=== PATIENT | male | born 1955 | race American Indian/Alaskan Native ===

== ENCOUNTER 2017-03-03 00:28 | Inpatient (IN) | payer MEDICAID, OTHER ==
--- NOTE | 2017-03-03 00:44 | Emergency Department Report ---
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 Patient's family member had last seen him 3 hours prior to arrival and she came home and found him on the ground. FS of 107 by ems. He is not answering questions and only following some commands and he has significant weakness in his left upper and lower extremity as well as a left-sided facial droop. - Related Data Home Medications: Home Medications Medication Instructions Recorded Confirmed Last Taken Apixaban [Eliquis] 5 mg PO BID 08/12/16 08/12/16 08/11/16 AtorvaSTATin [Lipitor] 40 mg PO DAILY 08/12/16 08/12/16 08/11/16 Lisinopril/Hydrochlorothiazide 1 tab PO QDAY 08/12/16 08/12/16 08/11/16 [Zestoretic 20-12.5 mg] Sertraline HCl [Zoloft] 50 mg PO DAILY 08/12/16 08/12/16 08/11/16 amLODIPine [Norvasc] 5 mg PO DAILY 08/12/16 08/12/16 08/11/16 cloNIDine [Catapres] 0.2 mg PO BID 08/12/16 08/12/16 08/11/16 Previous Rx's Medication Instructions Recorded Last Taken Type Carvedilol [Coreg] 25 mg PO BID #60 tablet 09/02/15 08/11/16 Rx Warfarin [Coumadin] 7.5 mg PO QDAY #30 tablet 09/02/15 3 Months Ago Rx metFORMIN [Glucophage] 500 mg PO QDAY #30 tab 09/02/15 08/11/16 Rx Allergies/Adverse Reactions: Allergies Allergy/AdvReac Type Severity Reaction Status Date / Time No Known Allergies Allergy Unverified 08/26/15 02:07 ED Review of Systems ROS: Stated complaint: POSS STROKE Other details as noted in HPI Comment: Unobtainable due to pts medical conditions ED Past Medical Hx - Past Medical History Hx Hypertension: Yes Hx CVA: Yes Hx Congestive Heart Failure: No Hx Diabetes: Yes Hx Kidney Stones: Yes Hx HIV: No - Social History Smoking Status: Never Smoker Substance Use Type: None - Medications Home Medications: Home Medications Medication Instructions Recorded Confirmed Last Taken Type Carvedilol [Coreg] 25 mg PO BID #60 tablet 09/02/15 08/12/16 08/11/16 Rx Warfarin [Coumadin] 7.5 mg PO QDAY #30 tablet 09/02/15 08/12/16 3 Months Ago Rx metFORMIN [Glucophage] 500 mg PO QDAY #30 tab 09/02/15 08/12/16 08/11/16 Rx Apixaban [Eliquis] 5 mg PO BID 08/12/16 08/12/16 08/11/16 History AtorvaSTATin [Lipitor] 40 mg PO DAILY 08/12/16 08/12/16 08/11/16 History Lisinopril/Hydrochlorothiazide 1 tab PO QDAY 08/12/16 08/12/16 08/11/16 History [Zestoretic 20-12.5 mg] Sertraline HCl [Zoloft] 50 mg PO DAILY 08/12/16 08/12/16 08/11/16 History amLODIPine [Norvasc] 5 mg PO DAILY 08/12/16 08/12/16 08/11/16 History cloNIDine [Catapres] 0.2 mg PO BID 08/12/16 08/12/16 08/11/16 History ED Neuro Physical Exam - General Limitations: Altered Mental Status General appearance: alert, in no apparent distress Suspected Stroke: Yes - Head Head exam: Present: atraumatic, normocephalic - Eye Eye exam: Present: normal appearance - ENT ENT exam: Present: normal exam - Neck Neck exam: Present: normal inspection - Respiratory Respiratory exam: Present: normal lung sounds bilaterally. Absent: respiratory distress - Cardiovascular Cardiovascular Exam: Present: regular rate, other (irregularly irregular rhythm) - GI/Abdominal GI/Abdominal exam: Present: soft. Absent: distended, tenderness, guarding - Extremities Exam Extremities exam: Present: normal inspection - Neurological Exam Neurological exam: Present: alert, other (patient is unable to answer questions , when asked to state his name he states makes nonsensical noises, he has significant left upper extremity weakness unable to pick his arm or leg off the stretcher, sensation unable to be assessed, has a slight facial droop on the left, aphasia, appears to be neglecting his left side) - NIHSS Assessment Interval: Baseline 1a. Level of Consciousness: alert 1b. LOC Questions: answers no questions correctly 1c. LOC Commands: performs no tasks correctly 2. Best Gaze: normal 3. Visual: complete hemianopia 4. Facial Palsy: partial paralysis 5b. Motor Arm Right: no drift 5a. Motor Arm Left: no gravity effort 6a. Motor Leg Left: no gravity effort 6b. Motor Leg Right: no drift 7. Limb Ataxia: absent 8. Sensory: severe/total sensory loss 9. Best Language: severe aphasia 10. Dysarthria: severe dysarthria 11. Extinction/Inattention: visual/tactile inattention Total Score: 21 Stroke Severity: Severe Stroke - Psychiatric Psychiatric exam: Present: normal affect ED Course Vital Signs 03/03/17 03/03/17 00:34 01:19 Temperature 98.4 F Pulse Rate 69 60 Respiratory 18 18 Rate Blood Pressure 190/80 Blood Pressure 122/64 [Right] O2 Sat by Pulse 97 98 Oximetry - Consultations Consultation #1: 03/03/17 01:02 Spoke to radiologist who states there is a subacute stroke of approximately 8- 10 hours at right MCA Spoke to neurologist who is currently evaluating the patient. Unclear whether to use tPA as patient has anticoagulation in his medicine list in the past. 03/03/17 01:25 Spoke to the neurologist again after he evaluated the patient, does not recommend TPA at this time, agree with assessment. - Lab Data Result diagrams: 03/03/17 00:45 03/03/17 00:45 Lab Results 03/03/17 03/03/17 03/03/17 Range/Units 00:45 00:45 00:45 WBC 8.0 (4.5-11.0) K/mm3 RBC 5.68 H (3.65-5.03) M/mm3 Hgb 12.2 (11.8-15.2) gm/dl Hct 39.7 (35.5-45.6) % MCV 70 L (84-94) fl MCH 22 L (28-32) pg MCHC 31 L (32-34) % RDW 17.3 H (13.2-15.2) % Plt Count 260 (140-440) K/mm3 Lymph % (Auto) 32.1 (13.4-35.0) % [place] % (Auto) 9.5 H (0.0-7.3) % Eos % (Auto) 2.4 (0.0-4.3) % Baso % (Auto) 0.8 (0.0-1.8) % Lymph # 2.6 (1.2-5.4) K/mm3 [place]eth # 0.8 (0.0-0.8) K/mm3 Eos # 0.2 (0.0-0.4) K/mm3 Baso # 0.1 (0.0-0.1) K/mm3 Seg Neutrophils % 55.2 (40.0-70.0) % Seg Neutrophils # 4.4 (1.8-7.7) K/mm3 PT 13.3 (12.2-14.9) Sec. INR 1.02 (0.87-1.13) APTT 32.1 (24.2-36.6) Sec. Sodium 133 L (137-145) mmol/L Chloride 92.5 L (98-107) mmol/L Carbon Dioxide 24 (22-30) mmol/L BUN 21 H (9-20) mg/dL Creatinine 1.1 (0.8-1.5) mg/dL Estimated GFR > 60 ml/min BUN/Creatinine Ratio 19.09 % Glucose 103 H (75-100) mg/dL Calcium 9.5 (8.4-10.2) mg/dL Phosphorus 3.7 (2.5-4.5) mg/dL Magnesium 1.9 (1.7-2.3) mg/dL Total Bilirubin 0.3 (0.1-1.2) mg/dL Direct Bilirubin < 0.2 (0-0.2) mg/dL Indirect Bilirubin 0.1 mg/dL Troponin T < 0.010 (0.00-0.029) ng/mL Total Protein 8.4 H (6.3-8.2) g/dL Albumin 3.9 (3.9-5) g/dL Albumin/Globulin Ratio 0.9 % - Medical Decision Making Upon evaluation on the EMS stretcher patient appeared to have an exam consistent with a stroke a stroke code was called and the patient was taken immediately to CT. CT did not show any intracranial hemorrhage but appeared to show a right sided infarct in the MCA region. IV, labs, monitor, EKG, chest x-ray, UA, Parra EKG shows atrial fibrillation at a rate of 65, no ST changes Chest x-ray unremarkable Labs unremarkable Aspirin 300 mg OH ordered Nothing by mouth Admission for CVA Critical care attestation.: If time is entered above; I have spent that time in minutes in the direct care of this critically ill patient, excluding procedure time. ED Disposition Clinical Impression: CVA (cerebral vascular accident) Qualifiers: CVA mechanism: unspecified Qualified Code(s): I63.9 - Cerebral infarction, unspecified Disposition: OP ADMITTED IP TO THIS HOSP Is pt being admited?: Yes Does the pt Need Aspirin: Yes Condition: Stable
--- NOTE | 2017-03-03 01:08 | XRay Report ---
FINAL REPORT PROCEDURE: XR CHEST 1V AP TECHNIQUE: Chest radiograph anteroposterior view. CPT 45886 HISTORY: cva COMPARISON: No prior studies are available for comparison. FINDINGS: Heart: Normal. Mediastinum/Vessels: Normal. Lungs/Pleural space: The lungs are clear. The left costophrenic angle is not included on the radiograph and not evaluated.. Bony thorax: No acute osseous abnormality. Life support devices: None. IMPRESSION: No acute cardiopulmonary abnormality.
[2017-03-03 01:13] LABS: Basophils % (Auto) 0.8 % (0.0-1.8); Eosinophils % (Auto) 2.4 % (0.0-4.3); Mean Corpuscular HGB Conc 31 % (32-34); Platelet Count 260 K/mm3 (140-440); Red Blood Count 5.68 M/mm3 (3.65-5.03); Red Cell Distribution Width 17.3 % (13.2-15.2)
[2017-03-03 01:25] LABS: INR 1.02 (0.87-1.13)
[2017-03-03 01:26] LABS: Partial Thromboplastin Time 32.1 Sec. (24.2-36.6)
[2017-03-03 01:29] LABS: Hematocrit 39.7 % (35.5-45.6); Hemoglobin 12.2 gm/dl (11.8-15.2); Mean Corpuscular Hemoglobin 22 pg (28-32); Mean Corpuscular Volume 70 fl (84-94)
[2017-03-03 01:40] LABS: Albumin 3.9 g/dL (3.9-5); Albumin/Globulin Ratio 0.9 %; BUN/Creatinine Ratio 19.09; Bilirubin,Direct < 0.2 mg/dL (0-0.2); Bilirubin,Indirect 0.1 mg/dL; Bilirubin,Total 0.3 mg/dL (0.1-1.2); Blood Urea Nitrogen 21 mg/dL (9-20); Calcium 9.5 mg/dL (8.4-10.2); Carbon Dioxide 24 mmol/L (22-30); Chloride 92.5 mmol/L (98-107); Glucose 103 mg/dL (75-100); Magnesium 1.9 mg/dL (1.7-2.3); Phosphorous 3.7 mg/dL (2.5-4.5); Sodium 133 mmol/L (137-145); Total Protein 8.4 g/dL (6.3-8.2)
[2017-03-03] MEDS ORDERED: ASPIRIN PR ONE ×2 (01:50→04:51)
[2017-03-03 02:34] LABS: Alanine Aminotransferase 17 units/L (7-56); Alkaline Phosphatase 77 units/L (35-129); Anion Gap 22 mmol/L; Creatine Kinase 149 units/L (55-170)
[2017-03-03 02:35] LABS: Potassium 5.4 mmol/L (3.6-5.0)
[2017-03-03] MEDS ORDERED: MILK OF MAGNESIA PO PRN (03:00)
[2017-03-03] MEDS ORDERED: ZOFRAN IV PRN (03:00)
[2017-03-03] MEDS ORDERED: DULCOLAX PR PRN (03:00)
[2017-03-03] MEDS ORDERED: APRESOLINE IV PRN (03:00)
[2017-03-03] MEDS ORDERED: SODIUM CHLORIDE FLUSH SYRINGE 10 ML IV PRN (03:00)
--- NOTE | 2017-03-03 03:12 | History and Physical Report ---
History of Present Illness Date of examination: 03/03/17 History of present illness: 61-year-old man with a history of hypertension, diabetes, A. fib, previous CVA with left sided weakness comes emergency room with complaints of worsening left- sided weakness and difficulty expressing himself. Girlfriend at bedside state that patient was going to the bathroom, fell, he was found on the floor it's on clear what time he was going to the bathroom. Patient was evaluated by telemetry neurologists, TPA was decided not to be given as it was unclear the patient was taken xarelto. Girlfriend state that the patient is actually taking Coumadin, not xarelto Patient denies chest pain, palpitation, shortness of breath, cough, abdominal pain, hematochezia, dysuria, frequency, fever chills, polydipsia polyuria, hot or cold intolerance, easy bruisability, or rash or bleeding from mucosal membrane, rhinorrhea, epistaxis, earache, tinnitus, blurry vision, eye discharge , anxiety, depression. Other review of systems negative PAST SURGICAL HISTORY: None SOCIAL HISTORY: Denies alcohol, tobacco, drugs FAMILY HISTORY: Hypertension Medications and Allergies Allergies Allergy/AdvReac Type Severity Reaction Status Date / Time No Known Allergies Allergy Unverified 08/26/15 02:07 Home Medications Medication Instructions Recorded Confirmed Last Taken Type Carvedilol [Coreg] 25 mg PO BID #60 tablet 09/02/15 03/03/17 1 Day Ago Rx Warfarin [Coumadin] 7.5 mg PO QDAY #30 tablet 09/02/15 03/03/17 1 Day Ago Rx metFORMIN [Glucophage] 500 mg PO QDAY #30 tab 09/02/15 03/04/17 1 Week Ago Rx Lisinopril/Hydrochlorothiazide 1 tab PO QDAY 08/12/16 03/03/17 1 Day Ago History [Zestoretic 20-12.5 mg] Sertraline HCl [Zoloft] 50 mg PO DAILY 08/12/16 03/03/17 1 Day Ago History amLODIPine [Norvasc] 5 mg PO DAILY 08/12/16 03/03/17 1 Day Ago History cloNIDine [Catapres] 0.2 mg PO BID 08/12/16 03/03/17 1 Day Ago History Aspirin [Aspirin TAB] 325 mg PO QDAY #30 tablet 03/09/17 Unknown Rx Bisacodyl [Dulcolax suppos] 10 mg [place] QDAY PRN #30 supp.rect 03/09/17 Unknown Rx Carvedilol [Coreg] 25 mg PO BID #30 tablet 03/09/17 Unknown Rx Hydrochlorothiazide [HCTZ] 12.5 mg PO QDAY capsule 03/09/17 Unknown Rx Pantoprazole [Protonix TAB] 40 mg PO DAILY tablet 03/09/17 Unknown Rx Sertraline [Zoloft] 50 mg PO QDAY tablet 03/09/17 Unknown Rx Simvastatin [Zocor TAB] 40 mg PO QHS #30 tablet 03/09/17 Unknown Rx amLODIPine [Norvasc] 5 mg PO DAILY #30 tablet 03/09/17 Unknown Rx cloNIDine [Catapres] 0.2 mg PO BID #30 tablet 03/09/17 Unknown Rx metFORMIN [Glucophage] 500 mg PO QDDIAB tablet 03/09/17 Unknown Rx Exam - Physical Exam Narrative exam: Gen. appearance: Patient lying in bed, no apparent distress HEENT: Normocephalic, atraumatic, pupils equally round and reactive to light, extraocular movement intact, and no sclericterus,. No JVD or thyromegaly or nodule,neck supple, no carotid bruit ,mucous membranes moist, no exudate or erythema Heart: S1, S2, regular rate and rhythm Lungs: Clear to auscultation bilaterally, breathing comfortable Abdomen: Positive bowel sounds, nontender, nondistended, no organomegaly Extremity: No edema, cyanosis, clubbing Skin: No rash, nodules, warm, dry Neuro: Oriented 3, c, speech is fluent, he has difficulty finding words , left upper and lower extremity 0/5, no sensory deficit, unable to assess facial droop, patient noncompliant - Constitutional Vitals: Temp Pulse Resp BP Pulse Ox 98.4 F 60 18 122/64 99 03/03/17 01:19 03/03/17 01:19 03/03/17 01:19 03/03/17 01:19 03/03/17 01:19 Results - Labs CBC & Chem 7: 03/13/17 05:06 03/03/17 00:45 Labs: Abnormal lab results 03/03/17 03/03/17 Range/Units 00:45 00:45 RBC 5.68 H (3.65-5.03) M/mm3 MCV 70 L (84-94) fl MCH 22 L (28-32) pg MCHC 31 L (32-34) % RDW 17.3 H (13.2-15.2) % Luce % (Auto) 9.5 H (0.0-7.3) % Sodium 133 L (137-145) mmol/L Potassium 5.4 H (3.6-5.0) mmol/L Chloride 92.5 L (98-107) mmol/L BUN 21 H (9-20) mg/dL Glucose 103 H (75-100) mg/dL Total Protein 8.4 H (6.3-8.2) g/dL - Imaging and Cardiology EKG: image reviewed Chest x-ray: image reviewed CT Scan - head: report reviewed Assessment and Plan Acute CVA Hypertension Diabetes type 2 A. fib Admit to medicine Obtain MRI of the head and neck, echo Do neurochecks, swallow screen consult neurology, physical, occupational, speech therapy Start aspirin, statin, DVT prophylaxis Check Fingersticks initiate insulin sliding scale
[2017-03-03] MEDS ORDERED: D50W (25GM) IV PRN (03:15)
--- NOTE | 2017-03-03 08:01 | Cat Scan Report ---
FINAL REPORT PROCEDURE: CT HEAD/BRAIN WO CON TECHNIQUE: Computerized tomography of the head was performed without contrast material. HISTORY: cva COMPARISON: 08/26/2015 FINDINGS: Skull and scalp: Normal. Paranasal sinuses: Normal. Ventricles and subarachnoid spaces: Normal. Cerebrum: There is diffuse area of hypoattenuation identified in the mid and posterior right temporal lobe. Subacute infarction in this region is suspected. No evidence of hemorrhage. Moderate atrophy and periventricular deep white matter changes are noted. Old lacunar infarctions of the right basal ganglia are identified.. Cerebellum and brainstem: No evidence of hemorrhage, acute infarction or mass. Vasculature: Normal. Comments: None. IMPRESSION: Diffuse areas of hypoattenuation identified in the mid and posterior right temporal lobe most consistent with subacute infarction. Further imaging differentiation with MRI may be of benefit. No evidence of acute hemorrhage. Moderate atrophy and periventricular deep white matter changes. There are old lacunar infarctions of the right basal ganglia. The above findings are discussed with the patient's ER physician Dr. Parsons, at the time of dictation 7501 central standard time on 03/02/2017
--- NOTE | 2017-03-03 08:22 | Admit Criteria Form ---
Admission Criteria Documentation: STROKE: ISCHEMIC Clinical Indications for Admission to Inpatient Care (Place 'X' for any and all applicable criteria): Admission is indicated for ANY ONE of the following(1)(2)(3)(4): [X ]I. Acute stroke Extended stay beyond goal length of stay may be needed for(1)(2) [ ]a) Major deficit or clinical deterioration [ ]b) Hospital-acquired infection (eg, urinary tract infection, pneumonia) [ ]c) Embolic cause of stroke [ ]d) Venous thromboembolism(9) [ ]e) Seizures [ ]f) Bleeding (eg, cerebral) [ ]g) Increased intracranial pressure [ ]h) Comorbidities [ ]i) Surgical intervention The original [employer] [facility] content created by [employer] has been revised. The portions of the content which have been revised are identified through the use of italic text or in bold, and [facility] has neither reviewed nor approved the modified material. All other unmodified content is copyright [facility]. Please see references footnoted in the original [facility] edition 2016 Admission Criteria Met: Yes
[2017-03-03] MEDS ORDERED: LOVENOX SUB-Q SCH (10:00)
[2017-03-03] MEDS: ASPIRIN PO SCH (10:18)
[2017-03-03] MEDS: NOVOLOG SUB-Q SCH ×4 (10:18→22:41)
--- NOTE | 2017-03-03 11:18 | Event Note ---
Date: 03/03/17 This is a follow-up from an admission earlier this morning. Will continue plan as outlined in the H&P.
--- NOTE | 2017-03-03 11:40 | Consultation ---
History of Present Illness Consult date: 03/03/17 Requesting physician: JOHNNY ALEJANDRE Reason for Consult: stroke Chief complaint: unclear as pt not verbally responsive History of present illness: 61 YO M Hx HTN/HLD/DM2/prior stroke w/ residual L hemiparesis and Afib on Coumadin but suspected noncompliance as INR on admit 1.02 who was found down on bathroom floor 03/02 overnight. Last well unclear. Sx are constant. There are no clear aggravating, relieving or temporal factors. Severity was enough to cause inability to effectively use the left side. Past History Past Medical History: atrial fib, diabetes, hypertension, hyperlipidemia, stroke Past Surgical History: Other (AMS limits Hx) Social history: single, other (AMS limits hx) Family history: other (AMS limits hx) Medications and Allergies Allergies Allergy/AdvReac Type Severity Reaction Status Date / Time No Known Allergies Allergy Unverified 08/26/15 02:07 Home Medications Medication Instructions Recorded Confirmed Last Taken Type Carvedilol [Coreg] 25 mg PO BID #60 tablet 09/02/15 08/12/16 08/11/16 Rx Warfarin [Coumadin] 7.5 mg PO QDAY #30 tablet 09/02/15 08/12/16 3 Months Ago Rx metFORMIN [Glucophage] 500 mg PO QDAY #30 tab 09/02/15 08/12/16 08/11/16 Rx Apixaban [Eliquis] 5 mg PO BID 08/12/16 08/12/16 08/11/16 History AtorvaSTATin [Lipitor] 40 mg PO DAILY 08/12/16 08/12/16 08/11/16 History Lisinopril/Hydrochlorothiazide 1 tab PO QDAY 08/12/16 08/12/16 08/11/16 History [Zestoretic 20-12.5 mg] Sertraline HCl [Zoloft] 50 mg PO DAILY 08/12/16 08/12/16 08/11/16 History amLODIPine [Norvasc] 5 mg PO DAILY 08/12/16 08/12/16 08/11/16 History cloNIDine [Catapres] 0.2 mg PO BID 08/12/16 08/12/16 08/11/16 History Active Meds: Active Medications Acetaminophen (Tylenol) 650 mg PO Q4H PRN PRN Reason: Pain, Mild (1-3) Aspirin (Aspirin) 325 mg PO QDAY [facility] Last Admin: 03/03/17 10:18 Dose: Not Given Bisacodyl (Dulcolax) 10 mg [place] QDAY PRN PRN Reason: Constipation Dextrose (D50w (25gm)) 50 ml IV PRN PRN PRN Reason: Hypoglycemia Enoxaparin Sodium (Lovenox) 40 mg SUB-Q QDAY@1000 LAILA Hydralazine HCl (Apresoline) 5 mg IV Q6H PRN PRN Reason: Keep SBP between 160-185 mm Hg Insulin Aspart (Novolog) 0 units SUB-Q ACHS LAILA PRN Reason: Protocol Last Admin: 03/03/17 10:18 Dose: Not Given Magnesium Hydroxide (Milk Of Magnesia) 30 ml PO Q4H PRN PRN Reason: Constipation Ondansetron HCl (Zofran) 4 mg IV Q8H PRN PRN Reason: N/V unrelieved by Reglan Simvastatin (Zocor) 20 mg PO QHS [facility] Sodium Chloride (Sodium Chloride Flush Syringe 10 Ml) 10 ml IV PRN PRN PRN Reason: LINE FLUSH Review of Systems ROS unobtainable: due to mental status Physical Examination - Vital Signs Vital Signs: Vital Signs Pulse Resp BP Pulse Ox 69 18 190/80 97 03/03/17 00:34 03/03/17 00:34 03/03/17 00:34 03/03/17 00:34 - Constitutional General appearance: acutely ill, older than stated age - EENT EENT: Present: ATNC, PERRL, mucous membranes moist, hearing intact, vision intact - Respiratory Respiratory: Present: chest non-tender, normal breath sounds, no respiratory distress - Cardiovascular Cardiovascular: Present: regular rate, normal S2 Extremities: Present: no peripheral edema bilatateraly, no clubbing, cyanosis, no inflammation, no ischemia or petechiae - Gastrointestinal Gastrointestinal: Present: normoactive bowel sounds, soft, non-distended - Integumentary Integumentary: Present: normal - Neurologic Cranial nerve examination: PERRL, EOMI, VFF, tongue midline, intact, intact shoulder shrug, intact cough reflex, Intact Vestibulo-ocular r, intact corneal reflex, facial droop (mild on L), normal palatal elevation Speech examination: global aphasia Sensorimotor examination: flaccid paralysis (on L 0/5 UE and 3+ to 4-/5 on LLE) , hemiparesis (on L) Motor examination - right side: 5/5: biceps, triceps, wrist flexion, wrist extension, butter grader, hip flexors, knee extensors, dorsiflexion, toe extension (EHL) , plantarflexion Motor examination - left side: 1/5: biceps, triceps, wrist flexion, wrist extension, butter grader, 3/5: hip flexors, knee extensors, dorsiflexion, toe extension ( EHL), plantarflexion Detailed sensory examination: intact, pain Reflex and gait examination: Babinski's sign (on L) Reflexes: 0: ankle, 3+: bicep, knee, tricep - Musculoskeletal Musculoskeletal: Present: no fluid collection, no pain, normal range of motion - Psychiatric Psychiatric: Present: depressed, cooperative Results - Laboratory Findings CBC and BMP: 03/03/17 00:45 03/03/17 00:45 Assessment and Plan 61 YO M Hx HTN/HLD/DM2/prior stroke w/ residual L hemiparesis and Afib on Coumadin but suspected noncompliance as INR on admit 1.02 who was found down unclear last well w/ suspected R MCA stroke syndrome w/ dysphasia suggesing cardioembolic mechanism. CTH reveals R mid/posterior temporal subacute R temporal infarct. CDs neg. Plan and Recommendation: 1. No indication for pharmacologic thrombolysis with IV tPA or mechanical thrombectomy due to last known normal > 6 hrs from presentation. Current NIHSS 16. 2. Telemetry bed w/ Q4 hour neuro checks 3. Brain imaging: MRI Brain w/o Kyle Stroke Protocol 4. TTE to eval for possible active cardiac source of embolism 5. Serum Labs: HgA1c, LDL. 6. Permissive HTN for first 24-48 hours: HOB < 30 degrees, isotonic IVF prn and refrain from active Tx of HTN unless BP > 185/105 or pt develops malignant HTN. Can lower MAPs by 10-15% daily to reach goal SBP 120-160 after permissive HTN period 7. Secondary stroke prevention: Resume therapeutic AC w/ Coumadin @ home dose for goal INR 2-3. Upgrade to full dose statin therapy (Crestor 20mg or 40mg OR Lipitor 40mg or 80mg Daily OR Zocor 40mg QDay) for goal LDL < 70. 8. F/E/N: isotonic IVF prn, prn replete, bedside speech/swallow eval prior to PO intake. 9. DVT Prophylaxis 10. Stroke education, PT/OT/Speech Therapy consults, CM evaluation 11. For any changes in neurologic status, pls obtain STAT CTH w/o contrast and call neurology
[2017-03-03] MEDS: LOVENOX SUB-Q SCH ×2 (13:39→16:09)
--- NOTE | 2017-03-03 16:10 | Magnetic Resonance Report ---
MRI BRAIN WITHOUT CONTRAST: 03/03/17 03:00:00 CLINICAL: Stroke. COMPARISON: CT Head 03/03/17 TECHNIQUE: Axial diffusion, T1, T2, FLAIR, gradient echo T2*, and sagittal T1 sequences on a 1.5 Najma magnet. FINDINGS: Motion degrades the quality of examination . Large areas of restricted diffusion involves the right yin radiata, a small portion of right parietal lobe cortex, right parietal white matter and most of the right temporal lobe. Mild edema of the involved areas but no significant mass effect. No hemorrhage or extra axial collection . A large right basal ganglia chronic lacunar infarct. The ventricles and sulci are large for age. Normal pituitary and optic chiasm. A small focus of restricted diffusion in the right midbrain extending into the right cerebral peduncle. Chronic lacunar infarct of the right cerebellum. Absent right MCA flow voids. Normal sinuses. The orbits, and soft tissues are normal. Normal calvarium and skull base. IMPRESSION: 1. Subacute nonhemorrhagic infarcts involving most of the right temporal lobe and portions of the right parietal lobe cortex and white matter, right yin radiata and right midbrain. 2. Chronic right basal ganglia and right cerebellar lacunar infarct. 3. Extensive chronic white matter microangiopathy.
--- NOTE | 2017-03-03 16:14 | Magnetic Resonance Report ---
MRA HEAD WITHOUT CONTRAST: 03/03/17 03:00:00 CLINICAL: Stroke. COMPARISON: 08/27/15 TECHNIQUE: Axial 3-D [id number] MR angiography of the [place] with review of axial source images. FINDINGS: A new occlusion of the right MCA with no distal flow identified. The left A1 segment is absent and there is a prominent left anterior technique a artery. Normal bilateral TERRY and left MCA blood flow. The carotid arteries are intact. The right PILOT CAN ROUTER is intact but minimal flow is identified in the left PILOT CAN ROUTER. Intact basilar and vertebral arteries. IMPRESSION: New right MCA occlusion and high-grade stenosis versus occlusion of the left PILOT CAN ROUTER.
[2017-03-03] MEDS: ZOCOR PO SCH (22:49)
[2017-03-04] MEDS: NOVOLOG SUB-Q SCH ×4 (08:22→21:32)
[2017-03-04] MEDS: LOVENOX SUB-Q SCH (09:30)
[2017-03-04] MEDS: ASPIRIN PO SCH (09:30)
[2017-03-04] MEDS: TYLENOL PO PRN ×2 (09:36→18:01)
--- NOTE | 2017-03-04 10:50 | Progress Note ---
Assessment and Plan Assessment and plan: Right subacute mid/posterior temporal infarct. Continue stroke pathway. Carotid Doppler negative. Check MRI/MRA and TTE to evaluate possible active cardiac source of embolism. Continue with permissive hypertensive for the next 24 hours and then goal systolic blood pressure of 120-160. PT/OT/ST--swallow screen. Continue neuro checks. Accelerated hypertension. Blood pressure control as noted above. Diabetes mellitus type 2. Continue sliding-scale Accu-Cheks. Atrial fibrillation. Continue regular control. Follow-up echocardiogram. History Interval history: 61 YO M Hx HTN/HLD/DM2/prior stroke w/ residual L hemiparesis and Afib on Coumadin but suspected noncompliance as INR on admit 1.02 who was found down on bathroom floor 03/02 overnight admitted with R MCA stroke syndrome w/ dysphasia suggesing cardioembolic mechanism. CTH reveals R mid/posterior temporal subacute R temporal infarct. Hospitalist Physical - Constitutional Vitals: Temp Pulse Resp BP Pulse Ox 98.5 F 78 18 129/73 96 03/04/17 09:25 03/04/17 09:25 03/04/17 09:36 03/04/17 09:25 03/04/17 09:25 General appearance: Present: no acute distress, well-nourished - EENT Eyes: Present: PERRL, EOM intact ENT: hearing intact, clear oral mucosa, dentition normal - Neck Neck: Present: supple, normal ROM - Respiratory Respiratory effort: normal Respiratory: bilateral: CTA - Cardiovascular Rhythm: regular Heart Sounds: Present: S1 & S2. Absent: gallop, rub - Extremities Extremities: no ischemia, No edema, Full ROM - Abdominal General gastrointestinal: soft, non-tender, non-distended, normal bowel sounds - Integumentary Integumentary: Present: clear, warm, dry - Neurologic Neurologic: CNII-XII intact, other (left upper and lower extremity weakness) Results - Labs CBC & Chem 7: 03/03/17 00:45 03/03/17 00:45 Labs: Laboratory Last Values WBC 8.0 K/mm3 (4.5-11.0) 03/03/17 00:45 RBC 5.68 M/mm3 (3.65-5.03) H 03/03/17 00:45 Hgb 12.2 gm/dl (11.8-15.2) 03/03/17 00:45 Hct 39.7 % (35.5-45.6) 03/03/17 00:45 MCV 70 fl (84-94) L 03/03/17 00:45 MCH 22 pg (28-32) L 04 00:45 MCHC 31 % (32-34) L 04 00:45 RDW 17.3 % (13.2-15.2) H 03/03/17 00:45 Plt Count 260 K/mm3 (140-440) 03/03/17 00:45 Lymph % (Auto) 32.1 % (13.4-35.0) 03/03/17 00:45 Cherry % (Auto) 9.5 % (0.0-7.3) H 03/03/17 00:45 Eos % (Auto) 2.4 % (0.0-4.3) 03/03/17 00:45 Baso % (Auto) 0.8 % (0.0-1.8) 03/03/17 00:45 Lymph # 2.6 K/mm3 (1.2-5.4) 03/03/17 00:45 Cherry # 0.8 K/mm3 (0.0-0.8) 03/03/17 00:45 Eos # 0.2 K/mm3 (0.0-0.4) 03/03/17 00:45 Baso # 0.1 K/mm3 (0.0-0.1) 03/03/17 00:45 Seg Neutrophils % 55.2 % (40.0-70.0) 03/03/17 00:45 Seg Neutrophils # 4.4 K/mm3 (1.8-7.7) 03/03/17 00:45 PT 13.3 Sec. (12.2-14.9) 03/03/17 00:45 INR 1.02 (0.87-1.13) 03/03/17 00:45 APTT 32.1 Sec. (24.2-36.6) 03/03/17 00:45 Sodium 133 mmol/L (137-145) L 03/03/17 00:45 Potassium 5.4 mmol/L (3.6-5.0) H 03/03/17 00:45 Chloride 92.5 mmol/L (98-107) L 03/03/17 00:45 Carbon Dioxide 24 mmol/L (22-30) 03/03/17 00:45 Anion Gap 22 mmol/L 03/03/17 00:45 BUN 21 mg/dL (9-20) H 03/03/17 00:45 Creatinine 1.1 mg/dL (0.8-1.5) 03/03/17 00:45 Estimated GFR > 60 ml/min 03/03/17 00:45 BUN/Creatinine Ratio 19.09 % 03/03/17 00:45 Glucose 103 mg/dL (75-100) H 03/03/17 00:45 POC Glucose 90 (70-105) 03/03/17 22:04 Calcium 9.5 mg/dL (8.4-10.2) 03/03/17 00:45 Phosphorus 3.7 mg/dL (2.5-4.5) 03/03/17 00:45 Magnesium 1.9 mg/dL (1.7-2.3) 03/03/17 00:45 Total Bilirubin 0.3 mg/dL (0.1-1.2) 03/03/17 00:45 Direct Bilirubin < 0.2 mg/dL (0-0.2) 03/03/17 00:45 Indirect Bilirubin 0.1 mg/dL 03/03/17 00:45 AST 36 units/L (5-40) 03/03/17 00:45 ALT 17 units/L (7-56) 03/03/17 00:45 Alkaline Phosphatase 77 units/L (35-129) 03/03/17 00:45 Total Creatine Kinase 149 units/L (55-170) 03/03/17 00:45 Troponin T < 0.010 ng/mL (0.00-0.029) 03/03/17 00:45 Total Protein 8.4 g/dL (6.3-8.2) H 03/03/17 00:45 Albumin 3.9 g/dL (3.9-5) 03/03/17 00:45 Albumin/Globulin Ratio 0.9 % 03/03/17 00:45 Triglycerides 121 mg/dL (2-149) 03/04/17 06:51 Cholesterol 123 mg/dL (50-199) 03/04/17 06:51 LDL Cholesterol Direct 66 mg/dL (50-130) 03/04/17 06:51 HDL Cholesterol 33 mg/dL (40-59) L 03/04/17 06:51 Cholesterol/HDL Ratio 3.72 % 03/04/17 06:51 Blood Type A POSITIVE 03/03/17 00:45 Antibody Screen Negative 03/03/17 00:45
[2017-03-04] MEDS ORDERED: FLUARIX QUAD 2016-2017(36 MOS+) IM ONE (12:00)
[2017-03-04] MEDS ORDERED: PNEUMOVAX 23 IM ONE (12:00)
--- NOTE | 2017-03-04 13:55 | Event Note ---
Date: 03/04/17 MRI Brain/MRA Head and TTE reviewed. 61 YO M Hx HTN/HLD/DM2/prior stroke w/ residual L hemiparesis and Afib on Coumadin but suspected noncompliance as INR on admit 1.02 who was found down unclear last well w/ suspected R MCA stroke syndrome w/ dysphasia suggesting cardioembolic mechanism. CTH reveals R mid/ posterior temporal subacute R temporal infarct confirmed on MRI as subacute R temporo-parietal infarct also R midbrain ischemic. MRA Head occluded R MCA and high grade L ARCHITECTURE PROFESSOR stenosis. TTE w/o active thrombus. CDs neg. LDL 77 Plan and Recommendation: 1. Telemetry bed w/ Q4 hour neuro checks 2. Can lower MAPs by 10-15% daily to reach goal SBP 120-160 as permissive HTN period complete 3. Secondary stroke prevention: Resume therapeutic AC w/ Coumadin @ home dose for goal INR 2-3. Upgrade to full dose statin therapy (Crestor 20mg or 40mg OR Lipitor 40mg or 80mg Daily OR Zocor 40mg QDay) for goal LDL < 70. 4. F/E/N: isotonic IVF prn, prn replete, bedside speech/swallow eval prior to PO intake. 5. DVT Prophylaxis 6. Stroke education, PT/OT/Speech Therapy consults, CM evaluation 7. For any changes in neurologic status, pls obtain STAT CTH w/o contrast and call neurology 8. We can revisit as needed. Neuro clear for discharge w/ outpt follow up if remains clinically stable.
[2017-03-04] MEDS: D5/0.45NS 1,000 ML IV SCH (15:21)
[2017-03-04] MEDS: TORADOL IV SCH (21:22)
[2017-03-04] MEDS: ZOCOR PO SCH (21:24)
[2017-03-05] MEDS: TORADOL IV SCH (03:13)
[2017-03-05] MEDS: D5/0.45NS 1,000 ML IV SCH ×2 (05:30→21:34)
[2017-03-05] MEDS: NOVOLOG SUB-Q SCH ×4 (08:00→21:33)
--- NOTE | 2017-03-05 09:45 | Fluoroscopy Report ---
Modified barium swallow: History: CVA. Dysphagia. Findings: There was no obstruction noted to flow of liquids semisolid and solid through the cervical esophagus. No definite aspiration noted. Additional information will be provided by speech therapist. Impression: Findings as described.
[2017-03-05] MEDS: ASPIRIN PO SCH (09:56)
[2017-03-05] MEDS: LOVENOX SUB-Q SCH ×2 (09:56→11:44)
[2017-03-05] MEDS ORDERED: ZOCOR PO SCH (09:58)
[2017-03-05] MEDS ORDERED: NON-FORMULARY (Sertraline Hcl [Zoloft] 50 MG) PO SCH (10:00)
[2017-03-05] MEDS ORDERED: COUMADIN PO SCH (10:00)
[2017-03-05] MEDS ORDERED: NON-FORMULARY (Lisinopril/Hydrochlorothiazide [Zestoretic 20-12.5 Mg] 1 TAB) PO SCH (10:00)
--- NOTE | 2017-03-05 10:04 | Progress Note ---
Assessment and Plan Assessment and plan: Right subacute mid/posterior temporal infarct. Continue stroke pathway. Carotid Doppler negative. Check MRI/MRA and TTE to evaluate possible active cardiac source of embolism. Continue with permissive hypertensive for the next 24 hours and then goal systolic blood pressure of 120-160. PT/OT/ST--swallow screen. Continue neuro checks. Accelerated hypertension. Blood pressure control as noted above. Diabetes mellitus type 2. Continue sliding-scale Accu-Cheks. Atrial fibrillation. Continue rate control. Follow-up echocardiogram. Start heparin IV bridge and Resume Coumadin therapy. Dysphagia. Continue speech therapy. MBS today. DVT prophylaxis. Heparin/Coumadin. History Interval history: 61 YO M Hx HTN/HLD/DM2/prior stroke w/ residual L hemiparesis and Afib on Coumadin but suspected noncompliance as INR on admit 1.02 who was found down on bathroom floor 03/02 overnight admitted with R MCA stroke syndrome w/ dysphasia suggesing cardioembolic mechanism. CTH reveals R mid/posterior temporal subacute R temporal infarct. Hospitalist Physical - Constitutional Vitals: Temp Pulse Resp BP Pulse Ox 98.1 F 75 20 166/97 98 03/05/17 06:00 03/05/17 06:00 03/05/17 06:00 03/05/17 06:00 03/05/17 06:00 General appearance: Present: no acute distress, well-nourished - EENT Eyes: Present: PERRL, EOM intact ENT: hearing intact, clear oral mucosa, dentition normal - Neck Neck: Present: supple, normal ROM - Respiratory Respiratory effort: normal Respiratory: bilateral: CTA - Cardiovascular Rhythm: regular Heart Sounds: Present: S1 & S2. Absent: gallop, rub - Extremities Extremities: no ischemia, No edema, Full ROM - Abdominal General gastrointestinal: soft, non-tender, non-distended, normal bowel sounds - Integumentary Integumentary: Present: clear, warm, dry - Neurologic Neurologic: CNII-XII intact, moves all extremities Results - Labs CBC & Chem 7: 03/03/17 00:45 03/03/17 00:45 Labs: Laboratory Last Values WBC 8.0 K/mm3 (4.5-11.0) 03/03/17 00:45 RBC 5.68 M/mm3 (3.65-5.03) H 03/03/17 00:45 Hgb 12.2 gm/dl (11.8-15.2) 03/03/17 00:45 Hct 39.7 % (35.5-45.6) 03/03/17 00:45 MCV 70 fl (84-94) L 04 00:45 MCH 22 pg (28-32) L 04 00:45 MCHC 31 % (32-34) L 03/03/17 00:45 RDW 17.3 % (13.2-15.2) H 03/03/17 00:45 Plt Count 260 K/mm3 (140-440) 03/03/17 00:45 Lymph % (Auto) 32.1 % (13.4-35.0) 03/03/17 00:45 Dane % (Auto) 9.5 % (0.0-7.3) H 03/03/17 00:45 Eos % (Auto) 2.4 % (0.0-4.3) 03/03/17 00:45 Baso % (Auto) 0.8 % (0.0-1.8) 03/03/17 00:45 Lymph # 2.6 K/mm3 (1.2-5.4) 03/03/17 00:45 Dane # 0.8 K/mm3 (0.0-0.8) 03/03/17 00:45 Eos # 0.2 K/mm3 (0.0-0.4) 03/03/17 00:45 Baso # 0.1 K/mm3 (0.0-0.1) 03/03/17 00:45 Seg Neutrophils % 55.2 % (40.0-70.0) 03/03/17 00:45 Seg Neutrophils # 4.4 K/mm3 (1.8-7.7) 03/03/17 00:45 PT 13.3 Sec. (12.2-14.9) 03/03/17 00:45 INR 1.02 (0.87-1.13) 03/03/17 00:45 APTT 32.1 Sec. (24.2-36.6) 03/03/17 00:45 Sodium 133 mmol/L (137-145) L 03/03/17 00:45 Potassium 5.4 mmol/L (3.6-5.0) H 03/03/17 00:45 Chloride 92.5 mmol/L (98-107) L 03/03/17 00:45 Carbon Dioxide 24 mmol/L (22-30) 03/03/17 00:45 Anion Gap 22 mmol/L 03/03/17 00:45 BUN 21 mg/dL (9-20) H 03/03/17 00:45 Creatinine 1.1 mg/dL (0.8-1.5) 03/03/17 00:45 Estimated GFR > 60 ml/min 03/03/17 00:45 BUN/Creatinine Ratio 19.09 % 03/03/17 00:45 Glucose 103 mg/dL (75-100) H 03/03/17 00:45 POC Glucose 111 (70-105) H 03/04/17 21:05 Calcium 9.5 mg/dL (8.4-10.2) 03/03/17 00:45 Phosphorus 3.7 mg/dL (2.5-4.5) 03/03/17 00:45 Magnesium 1.9 mg/dL (1.7-2.3) 03/03/17 00:45 Total Bilirubin 0.3 mg/dL (0.1-1.2) 03/03/17 00:45 Direct Bilirubin < 0.2 mg/dL (0-0.2) 03/03/17 00:45 Indirect Bilirubin 0.1 mg/dL 03/03/17 00:45 AST 36 units/L (5-40) 03/03/17 00:45 ALT 17 units/L (7-56) 03/03/17 00:45 Alkaline Phosphatase 77 units/L (35-129) 03/03/17 00:45 Total Creatine Kinase 149 units/L (55-170) 03/03/17 00:45 Troponin T < 0.010 ng/mL (0.00-0.029) 03/03/17 00:45 Total Protein 8.4 g/dL (6.3-8.2) H 03/03/17 00:45 Albumin 3.9 g/dL (3.9-5) 03/03/17 00:45 Albumin/Globulin Ratio 0.9 % 03/03/17 00:45 Triglycerides 121 mg/dL (2-149) 03/04/17 06:51 Cholesterol 123 mg/dL (50-199) 03/04/17 06:51 LDL Cholesterol Direct 66 mg/dL (50-130) 03/04/17 06:51 HDL Cholesterol 33 mg/dL (40-59) L 03/04/17 06:51 Cholesterol/HDL Ratio 3.72 % 03/04/17 06:51 Blood Type A POSITIVE 03/03/17 00:45 Antibody Screen Negative 03/03/17 00:45
[2017-03-05 10:49] LABS: Hematocrit 39.3 % (35.5-45.6); Hemoglobin 12.3 gm/dl (11.8-15.2)
[2017-03-05 10:58] LABS: INR 1.08 (0.87-1.13)
[2017-03-05 10:59] LABS: Partial Thromboplastin Time 25.2 Sec. (24.2-36.6)
[2017-03-05] MEDS: ZOLOFT PO SCH (11:36)
[2017-03-05] MEDS: CATAPRES PO SCH ×2 (11:41→21:31)
[2017-03-05] MEDS: GLUCOPHAGE PO SCH (11:42)
[2017-03-05] MEDS: COREG PO SCH ×2 (11:42→21:31)
[2017-03-05] MEDS: NORVASC PO SCH (11:42)
[2017-03-05] MEDS: HEPARIN/ 0.45% NACL-25,000 UNIT/500 ML 25,000 UNITS/500 ML BAG IV SCH (11:48)
[2017-03-05] MEDS: ZESTRIL PO SCH (12:30)
[2017-03-05] MEDS: HCTZ PO SCH (12:30)
[2017-03-05] MEDS: COUMADIN PO SCH (18:09)
[2017-03-05] MEDS: TYLENOL PO PRN ×2 (18:13→21:32)
[2017-03-05] MEDS: ZOCOR PO SCH (21:32)
[2017-03-06 03:41] LABS: INR 1.14 (0.87-1.13)
[2017-03-06] MEDS: HEPARIN/ 0.45% NACL-25,000 UNIT/500 ML 25,000 UNITS/500 ML BAG IV SCH ×2 (05:05→21:46)
[2017-03-06] MEDS: GLUCOPHAGE PO SCH (07:30)
[2017-03-06] MEDS: NOVOLOG SUB-Q SCH ×4 (08:31→21:51)
[2017-03-06] MEDS: CATAPRES PO SCH ×2 (11:25→21:45)
[2017-03-06] MEDS: COREG PO SCH ×2 (11:25→21:44)
[2017-03-06] MEDS: NORVASC PO SCH (11:27)
[2017-03-06] MEDS: HCTZ PO SCH (11:27)
[2017-03-06] MEDS: ASPIRIN PO SCH (11:27)
[2017-03-06] MEDS: ZOLOFT PO SCH (11:28)
[2017-03-06] MEDS: ZESTRIL PO SCH (11:29)
--- NOTE | 2017-03-06 11:32 | Progress Note ---
Assessment and Plan Assessment and plan: Right subacute mid/posterior temporal infarct. Continue stroke pathway. MRI reveals subacute nonhemorrhagic infarct involving most of the right temporal lobe and portions of the right parietal lobe cortex and white matter, right yin radiata and right midbrain. Also there is evidence of chronic right basal ganglia and right cerebellar lacunar infarcts. MRA reveals New right MCA occlusion and high-grade stenosis versus occlusion of the left INFRASTRUCTURE SECURITY ARCHITECT. Echocardiogram reveals global left ventricular systolic function that is normal with EF 60-65% with mild concentric left ventricular hypertrophy. Accelerated hypertension. Blood pressure control as noted above. Diabetes mellitus type 2. Continue sliding-scale Accu-Cheks. Atrial fibrillation. Continue rate control. Follow-up echocardiogram. Start heparin IV bridge and Resume Coumadin therapy. Dysphagia. Continue speech therapy. MBS revealed no obstruction and no definite aspiration. Recommendations are for mechanical soft with ground meat and thin liquids. Continue aspiration precautions. DVT prophylaxis. Heparin/Coumadin. History Interval history: 61 YO M Hx HTN/HLD/DM2/prior stroke w/ residual L hemiparesis and Afib on Coumadin but suspected noncompliance as INR on admit 1.02 who was found down on bathroom floor 03/02 overnight admitted with R MCA stroke syndrome w/ dysphasia suggesing cardioembolic mechanism. CTH reveals R mid/posterior temporal subacute R temporal infarct. Hospitalist Physical - Constitutional Vitals: Temp Pulse Resp BP Pulse Ox 97.0 F L 63 18 163/85 97 03/06/17 08:43 03/06/17 08:43 03/06/17 08:43 03/06/17 08:43 03/06/17 08:43 General appearance: Present: no acute distress, well-nourished, other ( expressive aphasia.) - EENT Eyes: Present: PERRL, EOM intact ENT: hearing intact, clear oral mucosa, dentition normal - Neck Neck: Present: supple, normal ROM - Respiratory Respiratory effort: normal Respiratory: bilateral: CTA - Cardiovascular Rhythm: regular Heart Sounds: Present: S1 & S2. Absent: gallop, rub - Extremities Extremities: no ischemia, No edema, Full ROM - Abdominal General gastrointestinal: soft, non-tender, non-distended, normal bowel sounds - Integumentary Integumentary: Present: clear, warm, dry - Neurologic Neurologic: CNII-XII intact, moves all extremities Results - Labs CBC & Chem 7: 03/05/17 10:12 03/03/17 00:45 Labs: Laboratory Last Values WBC 8.0 K/mm3 (4.5-11.0) 03/03/17 00:45 RBC 5.68 M/mm3 (3.65-5.03) H 03/03/17 00:45 Hgb 12.3 gm/dl (11.8-15.2) 03/05/17 10:12 Hct 39.3 % (35.5-45.6) 03/05/17 10:12 MCV 70 fl (84-94) L 03/03/17 00:45 MCH 22 pg (28-32) L 03/03/17 00:45 MCHC 31 % (32-34) L 03/03/17 00:45 RDW 17.3 % (13.2-15.2) H 03/03/17 00:45 Plt Count 207 K/mm3 (140-440) 03/05/17 10:12 Lymph % (Auto) 32.1 % (13.4-35.0) 03/03/17 00:45 Vance % (Auto) 9.5 % (0.0-7.3) H 03/03/17 00:45 Eos % (Auto) 2.4 % (0.0-4.3) 03/03/17 00:45 Baso % (Auto) 0.8 % (0.0-1.8) 03/03/17 00:45 Lymph # 2.6 K/mm3 (1.2-5.4) 03/03/17 00:45 Vance # 0.8 K/mm3 (0.0-0.8) 03/03/17 00:45 Eos # 0.2 K/mm3 (0.0-0.4) 03/03/17 00:45 Baso # 0.1 K/mm3 (0.0-0.1) 03/03/17 00:45 Seg Neutrophils % 55.2 % (40.0-70.0) 03/03/17 00:45 Seg Neutrophils # 4.4 K/mm3 (1.8-7.7) 03/03/17 00:45 PT 14.5 Sec. (12.2-14.9) 03/06/17 02:56 INR 1.14 (0.87-1.13) H 03/06/17 02:56 APTT 25.2 Sec. (24.2-36.6) 03/05/17 10:12 Heparin Anti-Xa Level 0.55 U.I./ml (0.3-0.7) 03/06/17 02:56 Sodium 133 mmol/L (137-145) L 03/03/17 00:45 Potassium 5.4 mmol/L (3.6-5.0) H 03/03/17 00:45 Chloride 92.5 mmol/L (98-107) L 03/03/17 00:45 Carbon Dioxide 24 mmol/L (22-30) 03/03/17 00:45 Anion Gap 22 mmol/L 03/03/17 00:45 BUN 21 mg/dL (9-20) H 03/03/17 00:45 Creatinine 1.1 mg/dL (0.8-1.5) 03/03/17 00:45 Estimated GFR > 60 ml/min 03/03/17 00:45 BUN/Creatinine Ratio 19.09 % 03/03/17 00:45 Glucose 103 mg/dL (75-100) H 03/03/17 00:45 POC Glucose 83 (70-105) 03/06/17 08:40 Calcium 9.5 mg/dL (8.4-10.2) 03/03/17 00:45 Phosphorus 3.7 mg/dL (2.5-4.5) 03/03/17 00:45 Magnesium 1.9 mg/dL (1.7-2.3) 03/03/17 00:45 Total Bilirubin 0.3 mg/dL (0.1-1.2) 03/03/17 00:45 Direct Bilirubin < 0.2 mg/dL (0-0.2) 03/03/17 00:45 Indirect Bilirubin 0.1 mg/dL 03/03/17 00:45 AST 36 units/L (5-40) 03/03/17 00:45 ALT 17 units/L (7-56) 03/03/17 00:45 Alkaline Phosphatase 77 units/L (35-129) 03/03/17 00:45 Total Creatine Kinase 149 units/L (55-170) 03/03/17 00:45 Troponin T < 0.010 ng/mL (0.00-0.029) 03/03/17 00:45 Total Protein 8.4 g/dL (6.3-8.2) H 03/03/17 00:45 Albumin 3.9 g/dL (3.9-5) 03/03/17 00:45 Albumin/Globulin Ratio 0.9 % 03/03/17 00:45 Triglycerides 121 mg/dL (2-149) 03/04/17 06:51 Cholesterol 123 mg/dL (50-199) 03/04/17 06:51 LDL Cholesterol Direct 66 mg/dL (50-130) 03/04/17 06:51 HDL Cholesterol 33 mg/dL (40-59) L 03/04/17 06:51 Cholesterol/HDL Ratio 3.72 % 03/04/17 06:51 Blood Type A POSITIVE 03/03/17 00:45 Antibody Screen Negative 03/03/17 00:45
[2017-03-06] MEDS: COUMADIN PO SCH (17:45)
[2017-03-06] MEDS: TYLENOL PO PRN (21:43)
[2017-03-06] MEDS: D5/0.45NS 1,000 ML IV SCH (21:47)
[2017-03-06] MEDS: ZOCOR PO SCH (21:53)
[2017-03-07] MEDS: TYLENOL PO PRN ×2 (02:02→12:22)
[2017-03-07 05:38] LABS: Hematocrit 32.6 % (35.5-45.6); Hemoglobin 10.1 gm/dl (11.8-15.2)
[2017-03-07] MEDS: NOVOLOG SUB-Q SCH ×4 (08:40→23:45)
[2017-03-07] MEDS: GLUCOPHAGE PO SCH (08:50)
--- NOTE | 2017-03-07 10:17 | Progress Note ---
Assessment and Plan Assessment and plan: Right subacute mid/posterior temporal infarct. Continue stroke pathway. MRI reveals subacute nonhemorrhagic infarct involving most of the right temporal lobe and portions of the right parietal lobe cortex and white matter, right yin radiata and right midbrain. Also there is evidence of chronic right basal ganglia and right cerebellar lacunar infarcts. MRA reveals New right MCA occlusion and high-grade stenosis versus occlusion of the left ICU RN. Echocardiogram reveals global left ventricular systolic function that is normal with EF 60-65% with mild concentric left ventricular hypertrophy. Accelerated hypertension. Blood pressure control as noted above. Diabetes mellitus type 2. Continue sliding-scale Accu-Cheks. Atrial fibrillation. Continue rate control. Follow-up echocardiogram. Start heparin IV bridge and Resume Coumadin therapy. Dysphagia. Continue speech therapy. MBS revealed no obstruction and no definite aspiration. Recommendations are for mechanical soft with ground meat and thin liquids. Continue aspiration precautions. DVT prophylaxis. Heparin/Coumadin. Disposition. Patient will need placement. History Interval history: 61 YO M Hx HTN/HLD/DM2/prior stroke w/ residual L hemiparesis and Afib on Coumadin but suspected noncompliance as INR on admit 1.02 who was found down on bathroom floor 03/02 overnight admitted with R MCA stroke syndrome w/ dysphasia suggesing cardioembolic mechanism. CTH reveals R mid/posterior temporal subacute R temporal infarct. Hospitalist Physical - Constitutional Vitals: Temp Pulse Resp BP Pulse Ox 98.2 F 65 20 119/65 97 03/07/17 05:43 03/07/17 05:43 03/07/17 05:43 03/07/17 05:43 03/07/17 00:42 General appearance: Present: no acute distress, well-nourished, other ( expressive aphasia.) - EENT Eyes: Present: PERRL, EOM intact ENT: hearing intact, clear oral mucosa, dentition normal - Neck Neck: Present: supple, normal ROM - Respiratory Respiratory effort: normal Respiratory: bilateral: CTA - Cardiovascular Rhythm: regular Heart Sounds: Present: S1 & S2. Absent: gallop, rub - Extremities Extremities: no ischemia, No edema, Full ROM - Abdominal General gastrointestinal: soft, non-tender, non-distended, normal bowel sounds - Integumentary Integumentary: Present: clear, warm, dry - Neurologic Neurologic: CNII-XII intact, moves all extremities Results - Labs CBC & Chem 7: 03/07/17 04:57 04 00:45 Labs: Laboratory Last Values WBC 8.0 K/mm3 (4.5-11.0) 03/03/17 00:45 RBC 5.68 M/mm3 (3.65-5.03) H 03/03/17 00:45 Hgb 10.1 gm/dl (11.8-15.2) L 03/07/17 04:57 Hct 32.6 % (35.5-45.6) L D 03/07/17 04:57 MCV 70 fl (84-94) L 03/03/17 00:45 MCH 22 pg (28-32) L 03/03/17 00:45 MCHC 31 % (32-34) L 03/03/17 00:45 RDW 17.3 % (13.2-15.2) H 03/03/17 00:45 Plt Count 199 K/mm3 (140-440) 03/07/17 04:57 Lymph % (Auto) 32.1 % (13.4-35.0) 03/03/17 00:45 [place]verse % (Auto) 9.5 % (0.0-7.3) H 03/03/17 00:45 Eos % (Auto) 2.4 % (0.0-4.3) 03/03/17 00:45 Baso % (Auto) 0.8 % (0.0-1.8) 03/03/17 00:45 Lymph # 2.6 K/mm3 (1.2-5.4) 03/03/17 00:45 [place] # 0.8 K/mm3 (0.0-0.8) 03/03/17 00:45 Eos # 0.2 K/mm3 (0.0-0.4) 03/03/17 00:45 Baso # 0.1 K/mm3 (0.0-0.1) 03/03/17 00:45 Seg Neutrophils % 55.2 % (40.0-70.0) 03/03/17 00:45 Seg Neutrophils # 4.4 K/mm3 (1.8-7.7) 03/03/17 00:45 PT 14.5 Sec. (12.2-14.9) 03/06/17 02:56 INR 1.14 (0.87-1.13) H 03/06/17 02:56 APTT 25.2 Sec. (24.2-36.6) 03/05/17 10:12 Heparin Anti-Xa Level 0.63 U.I./ml (0.3-0.7) 03/07/17 04:57 Sodium 133 mmol/L (137-145) L 03/03/17 00:45 Potassium 5.4 mmol/L (3.6-5.0) H 03/03/17 00:45 Chloride 92.5 mmol/L (98-107) L 03/03/17 00:45 Carbon Dioxide 24 mmol/L (22-30) 03/03/17 00:45 Anion Gap 22 mmol/L 03/03/17 00:45 BUN 21 mg/dL (9-20) H 03/03/17 00:45 Creatinine 1.1 mg/dL (0.8-1.5) 03/03/17 00:45 Estimated GFR > 60 ml/min 03/03/17 00:45 BUN/Creatinine Ratio 19.09 % 03/03/17 00:45 Glucose 103 mg/dL (75-100) H 03/03/17 00:45 POC Glucose 130 (70-105) H 03/06/17 20:42 Calcium 9.5 mg/dL (8.4-10.2) 03/03/17 00:45 Phosphorus 3.7 mg/dL (2.5-4.5) 03/03/17 00:45 Magnesium 1.9 mg/dL (1.7-2.3) 03/03/17 00:45 Total Bilirubin 0.3 mg/dL (0.1-1.2) 03/03/17 00:45 Direct Bilirubin < 0.2 mg/dL (0-0.2) 03/03/17 00:45 Indirect Bilirubin 0.1 mg/dL 03/03/17 00:45 AST 36 units/L (5-40) 03/03/17 00:45 ALT 17 units/L (7-56) 03/03/17 00:45 Alkaline Phosphatase 77 units/L (35-129) 03/03/17 00:45 Total Creatine Kinase 149 units/L (55-170) 03/03/17 00:45 Troponin T < 0.010 ng/mL (0.00-0.029) 03/03/17 00:45 Total Protein 8.4 g/dL (6.3-8.2) H 03/03/17 00:45 Albumin 3.9 g/dL (3.9-5) 03/03/17 00:45 Albumin/Globulin Ratio 0.9 % 03/03/17 00:45 Triglycerides 121 mg/dL (2-149) 03/04/17 06:51 Cholesterol 123 mg/dL (50-199) 03/04/17 06:51 LDL Cholesterol Direct 66 mg/dL (50-130) 03/04/17 06:51 HDL Cholesterol 33 mg/dL (40-59) L 03/04/17 06:51 Cholesterol/HDL Ratio 3.72 % 03/04/17 06:51 Blood Type A POSITIVE 03/03/17 00:45 Antibody Screen Negative 03/03/17 00:45
[2017-03-07] MEDS: ASPIRIN PO SCH (10:50)
[2017-03-07] MEDS: ZOLOFT PO SCH (10:51)
[2017-03-07] MEDS: ZESTRIL PO SCH (10:52)
[2017-03-07] MEDS: COREG PO SCH ×2 (10:52→22:10)
[2017-03-07] MEDS: HCTZ PO SCH (10:52)
[2017-03-07] MEDS: CATAPRES PO SCH ×2 (10:53→22:09)
[2017-03-07] MEDS: NORVASC PO SCH (10:53)
[2017-03-07] MEDS: D5/0.45NS 1,000 ML IV SCH (11:59)
[2017-03-07] MEDS ORDERED: PROTONIX IV SCH (14:00)
[2017-03-07] MEDS: PROTONIX PO SCH (14:24)
[2017-03-07] MEDS: HEPARIN/ 0.45% NACL-25,000 UNIT/500 ML 25,000 UNITS/500 ML BAG IV SCH (14:29)
[2017-03-07] MEDS: COUMADIN PO SCH (17:32)
[2017-03-07] MEDS: ZOCOR PO SCH (22:10)
[2017-03-08 07:11] LABS: INR 2.04 (0.87-1.13)
--- NOTE | 2017-03-08 07:34 | Vascular Lab Report ---
CAROTID DUPLEX STUDY: RIGHT PSVEDV CCA PROX:197 9 CCA DIST: 74 9 ICA PROX: 40 5 ICA MID: 6218 ICA DIST: 7917 ECA: 123 8 VERT: 51 13 LEFT PSVEDV CCA PROX:53330 CCA DIST:[id number] ICA PROX: 4113 ICA MID: 5117 ICA DIST: 5819 ECA: 151 9 VERT: 45 10 REASON FOR EXAM: Stroke. COMMENTS ON THE RIGHT: Doppler frequency analysis is consistent with 16 to 49 percent diameter reduction of the internal carotid artery. Minimal amount of plaque is seen. The common carotid artery is patent. The external carotid artery is patent. The vertebral artery has antegrade flow. COMMENTS ON THE LEFT: Doppler frequency analysis is consistent with 16 to 49 percent diameter reduction of the internal carotid artery. Minimal amount of plaque is seen. The common carotid artery is patent. The external carotid artery is patent. The vertebral artery has antegrade flow. IMPRESSION: Less than 50% diameter reduction in the internal carotid arteries bilaterally. Consider repeat carotid artery duplex in 12 months.
[2017-03-08] MEDS: NOVOLOG SUB-Q SCH ×4 (08:00→23:30)
[2017-03-08] MEDS: TYLENOL PO PRN (08:26)
[2017-03-08] MEDS: GLUCOPHAGE PO SCH (08:26)
[2017-03-08] MEDS: HEPARIN/ 0.45% NACL-25,000 UNIT/500 ML 25,000 UNITS/500 ML BAG IV SCH ×2 (08:27→15:08)
--- NOTE | 2017-03-08 09:12 | XRay Report ---
AP CHEST: HISTORY: Fever There is poor inspiration. The lungs are grossly clear. No pleural effusion or pneumothorax. Heart size is borderline to mildly increased. No significant change since 03/03/17. IMPRESSION: Borderline heart size. Lungs clear.
[2017-03-08 09:18] LABS: Bilirubin,Urine NEG (Negative); Blood,Urine MOD (Negative); Ketones,Urine NEG (Negative); Leukocyte Esterase,Urine TR (Negative); Nitrite,Urine NEG (Negative); Urobilinogen,Urine < 2.0 mg/dL (<2.0)
[2017-03-08] MEDS: ZOLOFT PO SCH (10:05)
[2017-03-08] MEDS: ASPIRIN PO SCH (10:05)
[2017-03-08] MEDS: PROTONIX PO SCH (10:05)
[2017-03-08] MEDS: ZESTRIL PO SCH (10:06)
[2017-03-08] MEDS: NORVASC PO SCH (10:06)
[2017-03-08] MEDS: COREG PO SCH ×2 (10:07→21:45)
[2017-03-08] MEDS: CATAPRES PO SCH ×2 (10:07→21:45)
[2017-03-08] MEDS: HCTZ PO SCH (10:08)
--- NOTE | 2017-03-08 11:27 | Progress Note ---
Assessment and Plan Assessment and plan: Right subacute mid/posterior temporal infarct. Continue stroke pathway. MRI reveals subacute nonhemorrhagic infarct involving most of the right temporal lobe and portions of the right parietal lobe cortex and white matter, right yin radiata and right midbrain. Also there is evidence of chronic right basal ganglia and right cerebellar lacunar infarcts. MRA reveals New right MCA occlusion and high-grade stenosis versus occlusion of the left MOSAIC WORKER. Echocardiogram reveals global left ventricular systolic function that is normal with EF 60-65% with mild concentric left ventricular hypertrophy. Accelerated hypertension. Blood pressure control as noted above. Diabetes mellitus type 2. Continue sliding-scale Accu-Cheks. Atrial fibrillation. Continue rate control. Follow-up echocardiogram. Start heparin IV bridge and Resume Coumadin therapy. Dysphagia. Continue speech therapy. MBS revealed no obstruction and no definite aspiration. Recommendations are for mechanical soft with ground meat and thin liquids. Continue aspiration precautions. DVT prophylaxis. Heparin/Coumadin. Disposition. Patient will need placement. History Interval history: 61 YO M Hx HTN/HLD/DM2/prior stroke w/ residual L hemiparesis and Afib on Coumadin but suspected noncompliance as INR on admit 1.02 who was found down on bathroom floor 03/02 overnight admitted with R MCA stroke syndrome w/ dysphasia suggesing cardioembolic mechanism. CTH reveals R mid/posterior temporal subacute R temporal infarct. Patient with expressive aphasia. Hospitalist Physical - Constitutional Vitals: Temp Pulse Resp BP Pulse Ox 100.4 F H 75 20 123/58 97 03/08/17 08:00 03/08/17 10:07 03/08/17 08:00 03/08/17 10:07 03/08/17 08:00 General appearance: Present: no acute distress, well-nourished, other ( expressive aphasia.) - EENT Eyes: Present: PERRL, EOM intact ENT: hearing intact, clear oral mucosa, dentition normal - Neck Neck: Present: supple, normal ROM - Respiratory Respiratory effort: normal Respiratory: bilateral: CTA - Cardiovascular Rhythm: regular Heart Sounds: Present: S1 & S2. Absent: gallop, rub - Extremities Extremities: no ischemia, No edema, Full ROM - Abdominal General gastrointestinal: soft, non-tender, non-distended, normal bowel sounds - Integumentary Integumentary: Present: clear, warm, dry - Neurologic Neurologic: CNII-XII intact, other (left sided weakness, expressive aphasia) Results - Labs CBC & Chem 7: 03/07/17 04:57 04 00:45 Labs: Laboratory Last Values WBC 8.0 K/mm3 (4.5-11.0) 03/03/17 00:45 RBC 5.68 M/mm3 (3.65-5.03) H 03/03/17 00:45 Hgb 10.1 gm/dl (11.8-15.2) L 03/07/17 04:57 Hct 32.6 % (35.5-45.6) L D 03/07/17 04:57 MCV 70 fl (84-94) L 03/03/17 00:45 MCH 22 pg (28-32) L 03/03/17 00:45 MCHC 31 % (32-34) L 03/03/17 00:45 RDW 17.3 % (13.2-15.2) H 03/03/17 00:45 Plt Count 199 K/mm3 (140-440) 03/07/17 04:57 Lymph % (Auto) 32.1 % (13.4-35.0) 03/03/17 00:45 [place] % (Auto) 9.5 % (0.0-7.3) H 03/03/17 00:45 Eos % (Auto) 2.4 % (0.0-4.3) 03/03/17 00:45 Baso % (Auto) 0.8 % (0.0-1.8) 03/03/17 00:45 Lymph # 2.6 K/mm3 (1.2-5.4) 03/03/17 00:45 [place] # 0.8 K/mm3 (0.0-0.8) 03/03/17 00:45 Eos # 0.2 K/mm3 (0.0-0.4) 03/03/17 00:45 Baso # 0.1 K/mm3 (0.0-0.1) 03/03/17 00:45 Seg Neutrophils % 55.2 % (40.0-70.0) 03/03/17 00:45 Seg Neutrophils # 4.4 K/mm3 (1.8-7.7) 03/03/17 00:45 PT 23.1 Sec. (12.2-14.9) H 03/08/17 05:50 INR 2.04 (0.87-1.13) H 03/08/17 05:50 APTT 25.2 Sec. (24.2-36.6) 03/05/17 10:12 Heparin Anti-Xa Level 0.27 U.I./ml (0.3-0.7) L 03/08/17 09:55 Sodium 133 mmol/L (137-145) L 03/03/17 00:45 Potassium 5.4 mmol/L (3.6-5.0) H 03/03/17 00:45 Chloride 92.5 mmol/L (98-107) L 03/03/17 00:45 Carbon Dioxide 24 mmol/L (22-30) 03/03/17 00:45 Anion Gap 22 mmol/L 03/03/17 00:45 BUN 21 mg/dL (9-20) H 03/03/17 00:45 Creatinine 1.1 mg/dL (0.8-1.5) 03/03/17 00:45 Estimated GFR > 60 ml/min 03/03/17 00:45 BUN/Creatinine Ratio 19.09 % 03/03/17 00:45 Glucose 103 mg/dL (75-100) H 03/03/17 00:45 POC Glucose 106 (70-105) H 03/07/17 21:30 Calcium 9.5 mg/dL (8.4-10.2) 03/03/17 00:45 Phosphorus 3.7 mg/dL (2.5-4.5) 03/03/17 00:45 Magnesium 1.9 mg/dL (1.7-2.3) 03/03/17 00:45 Total Bilirubin 0.3 mg/dL (0.1-1.2) 03/03/17 00:45 Direct Bilirubin < 0.2 mg/dL (0-0.2) 03/03/17 00:45 Indirect Bilirubin 0.1 mg/dL 03/03/17 00:45 AST 36 units/L (5-40) 03/03/17 00:45 ALT 17 units/L (7-56) 03/03/17 00:45 Alkaline Phosphatase 77 units/L (35-129) 03/03/17 00:45 Total Creatine Kinase 149 units/L (55-170) 03/03/17 00:45 Troponin T < 0.010 ng/mL (0.00-0.029) 03/03/17 00:45 Total Protein 8.4 g/dL (6.3-8.2) H 03/03/17 00:45 Albumin 3.9 g/dL (3.9-5) 03/03/17 00:45 Albumin/Globulin Ratio 0.9 % 03/03/17 00:45 Triglycerides 121 mg/dL (2-149) 03/04/17 06:51 Cholesterol 123 mg/dL (50-199) 03/04/17 06:51 LDL Cholesterol Direct 66 mg/dL (50-130) 03/04/17 06:51 HDL Cholesterol 33 mg/dL (40-59) L 03/04/17 06:51 Cholesterol/HDL Ratio 3.72 % 03/04/17 06:51 Urine Color Yellow (Yellow) 03/08/17 08:50 Urine Turbidity Clear (Clear) 03/08/17 08:50 Urine pH 6.0 (5.0-7.0) 03/08/17 08:50 Ur Specific [place] 1.011 (1.003-1.030) 03/08/17 08:50 Urine Protein 100 mg/dl mg/dL (Negative) 03/08/17 08:50 Urine Glucose (UA) Neg mg/dL (Negative) 03/08/17 08:50 Urine Ketones Neg mg/dL (Negative) 03/08/17 08:50 Urine Blood Mod (Negative) 03/08/17 08:50 Urine Nitrite Neg (Negative) 03/08/17 08:50 Urine Bilirubin Neg (Negative) 03/08/17 08:50 Urine Urobilinogen < 2.0 mg/dL (<2.0) 03/08/17 08:50 Ur Leukocyte Esterase Tr (Negative) 03/08/17 08:50 Urine WBC (Auto) 6.0 /HPF (0.0-6.0) 03/08/17 08:50 Urine RBC (Auto) 3.0 /HPF (0.0-6.0) 03/08/17 08:50 U Epithel Cells (Auto) < 1.0 /HPF (0-13.0) 03/08/17 08:50 Blood Type A POSITIVE 03/03/17 00:45 Antibody Screen Negative 03/03/17 00:45
[2017-03-08] MEDS: D5/0.45NS 1,000 ML IV SCH (15:54)
[2017-03-08] MEDS ORDERED: COUMADIN PO SCH (17:00)
[2017-03-08] MEDS: ZOCOR PO SCH (21:45)
[2017-03-09] MEDS: HEPARIN/ 0.45% NACL-25,000 UNIT/500 ML 25,000 UNITS/500 ML BAG IV SCH (02:33)
[2017-03-09 02:49] LABS: Hematocrit 29.4 % (35.5-45.6)
[2017-03-09 02:58] LABS: INR 3.01 (0.87-1.13)
[2017-03-09] MEDS: D5/0.45NS 1,000 ML IV SCH ×3 (06:03→23:19)
[2017-03-09] MEDS: NOVOLOG SUB-Q SCH ×4 (08:30→23:27)
[2017-03-09] MEDS: GLUCOPHAGE PO SCH (08:37)
[2017-03-09] MEDS: ZOLOFT PO SCH (10:02)
[2017-03-09] MEDS: ASPIRIN PO SCH (10:02)
[2017-03-09] MEDS: PROTONIX PO SCH (10:02)
[2017-03-09] MEDS: TYLENOL PO PRN (10:03)
[2017-03-09] MEDS: CATAPRES PO SCH ×2 (10:04→22:03)
[2017-03-09] MEDS: HCTZ PO SCH (10:04)
[2017-03-09] MEDS: NORVASC PO SCH (10:04)
[2017-03-09] MEDS: ZESTRIL PO SCH (10:05)
[2017-03-09] MEDS: COREG PO SCH ×2 (10:05→22:03)
--- NOTE | 2017-03-09 10:31 | Discharge Summary ---
Providers - Providers Date of Admission: 03/03/17 03:00 Date of discharge: 03/09/17 Attending physician: WADE CRANE 03/03/17 15:34 Speech Therapy Evaluation and Treat [CONS] Routine Reason For Exam: Stroke Protocol Primary care physician: SOFTWARE CONTROLS ENGINEER Hospitalization Reason for admission: cva Condition: Stable Hospital course: This is a 61-year-old male with significant past medical history of hypertension , hyperlipidemia, diabetes mellitus type 2, prior CVA with residual left hemiparesis and atrial fibrillation on Coumadin who presented to the emergency department with new CVA. Patient is suspected to have medical noncompliance because INR was 1.02 on admission. Patient reportedly was found down on bathroom floor on the evening of 03/02/2017. Last well time was unclear therefore TPA was not given or indicated. CVA was felt to be right MCA stroke syndrome with dysphagia suggesting cardioembolic mechanism. CT scan of the head revealed a right mid and posterior temporal subacute CVA. Patient underwent echocardiogram and MRI/MRA for further evaluation. MRI revealed subacute nonhemorrhagic infarct involving most of the right temporal lobe and portions of the right parietal lobe cortex and white matter, right yin radiata and right midbrain. Also, there is evidence of chronic right basal ganglia and right cerebellar lacunar infarcts. MRA reveals New right MCA occlusion and high-grade stenosis versus occlusion of the left CRA OFFICER. Echocardiogram revealed global left ventricular systolic function that is normal with EF 60-65% with mild concentric left ventricular hypertrophy. Patient was started on IV heparin bridge and Coumadin therapy was resumed. Patient was also evaluated by neurology who recommended secondary stroke prevention with continued Coumadin and full dose statin therapy. Patient was seen by PT/OT/ST. Speech therapy perform modified barium swallow and patient exhibited mild oropharyngeal dysphagia. Recommendations were for mechanical soft diet with ground meat and thin liquids. Patient will be maintained on aspiration precautions. Physical therapy recommended acute rehabilitation placement. Case management was consulted and discharge planning was arranged. Patient will be discharged to rehabilitation. Dedicated discharge time 35 minutes. Disposition: DC/TX SNF [facility] Time spent for discharge: 35 - Discharge Diagnoses (1) CVA (cerebral vascular accident) Status: Acute Qualifiers: CVA mechanism: unspecified Precerebral and cerebral artery: P Laterality of affected vessel: L Qualified Code(s): I63.9 - Cerebral infarction, unspecified (2) Acute ischemic stroke Status: Acute (3) Arterial ischemic stroke, MCA, right, acute Status: Acute (4) Diabetes mellitus, type 2 Status: Acute Qualifiers: Diabetes mellitus complication status: D Diabetes mellitus complication detail: D Diabetic retinopathy severity: D Proliferative retinopathy type: P Diabetes mellitus macular edema: D Diabetes mellitus continuous churn buttermaker insulin use : D Laterality: L Chronic kidney disease stage: C (5) Dilated cardiomyopathy Status: Acute (6) Hyperlipidemia Status: Acute Qualifiers: Hyperlipidemia type: H (7) Hypertensive emergency Status: Acute (8) Atrial fibrillation Status: Chronic Qualifiers: Atrial fibrillation type: paroxysmal Qualified Code(s): I48.0 - Paroxysmal atrial fibrillation (9) HTN (hypertension) Status: Chronic Qualifiers: Hypertension type: essential hypertension Qualified Code(s): I10 - Essential (primary) hypertension (10) Non-compliance Status: Chronic Core Measure Documentation - Palliative Care Palliative Care/ Comfort Measures: Not Applicable - Core Measures Any of the following diagnoses?: stroke - Stroke Discharge Requirements Statin for LDL = or >70 mg/dl on DC: Yes Anticoag for atrial fib/atrial flutter: Yes Antithrombotic for ischemic stroke: Yes Exam - Constitutional Vitals: Temp Pulse Resp BP Pulse Ox 100.6 F H 74 24 139/69 98 03/09/17 07:46 03/09/17 10:05 03/09/17 07:46 03/09/17 10:05 03/09/17 07:46 General appearance: Present: no acute distress, well-nourished - EENT Eyes: Present: PERRL ENT: hearing intact, clear oral mucosa - Neck Neck: Present: supple, normal ROM - Respiratory Respiratory effort: normal Respiratory: bilateral: CTA - Cardiovascular Heart Sounds: Present: S1 & S2. Absent: rub, click - Extremities Extremities: pulses symmetrical, No edema Peripheral Pulses: within normal limits - Abdominal General gastrointestinal: Present: soft, non-tender, non-distended, normal bowel sounds Male genitourinary: Present: normal - Integumentary Integumentary: Present: clear, warm, dry - Musculoskeletal Musculoskeletal: other (left sided weakness) - Psychiatric Psychiatric: appropriate mood/affect, intact judgment & insight - Neurologic Neurologic: CNII-XII intact, moves all extremities, other (aphasic) Plan Activity: advance as tolerated Weight Bearing Status: Weight Bear as Tolerated Diet: low fat, low cholesterol, low salt, diabetic, per dietitian instruction, other (per speech therapy recommendation) Follow up with: PRIMARY CARE, [Primary Care Provider] - 3-5 Days Forms: Warfarin Discharge Instruction
[2017-03-09] MEDS: ZOCOR PO SCH (22:02)
[2017-03-10] MEDS: NOVOLOG SUB-Q SCH ×4 (08:14→23:55)
[2017-03-10 08:31] LABS: INR 3.31 (0.87-1.13)
--- NOTE | 2017-03-10 10:43 | Event Note ---
Date: 03/10/17 Patient seen and examined. Discharge order was placed yesterday. However, case management still awaiting placement. Continue to monitor. Awaiting placement. Please refer to discharge summary on 03/09/17
[2017-03-10] MEDS: ASPIRIN PO SCH (10:45)
--- NOTE | 2017-03-10 10:45 | Progress Note ---
Assessment and Plan Right subacute mid/posterior temporal infarct. Continue stroke pathway. MRI reveals subacute nonhemorrhagic infarct involving most of the right temporal lobe and portions of the right parietal lobe cortex and white matter, right yin radiata and right midbrain. Also there is evidence of chronic right basal ganglia and right cerebellar lacunar infarcts. 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 Echocardiogram reveals global left ventricular systolic function that is normal with EF 60-65% with mild concentric left ventricular hypertrophy. Accelerated hypertension. Blood pressure control as noted above. Diabetes mellitus type 2. Continue sliding-scale Accu-Cheks. Atrial fibrillation. Continue rate control. Follow-up echocardiogram. Start heparin IV bridge and Resume Coumadin therapy. Dysphagia. Continue speech therapy. MBS revealed no obstruction and no definite aspiration. Recommendations are for mechanical soft with ground meat and thin liquids. Continue aspiration precautions. DVT prophylaxis. Heparin/Coumadin. Disposition. Patient will need placement. - Patient Problems (1) CVA (cerebral vascular accident) Current Visit: Yes Status: Acute Qualifiers: CVA mechanism: unspecified Precerebral and cerebral artery: P Laterality of affected vessel: L Qualified Code(s): I63.9 - Cerebral infarction, unspecified (2) Acute ischemic stroke Current Visit: No Status: Acute (3) Arterial ischemic stroke, MCA, right, acute Current Visit: No Status: Acute (4) Diabetes mellitus, type 2 Current Visit: No Status: Acute Qualifiers: Diabetes mellitus complication status: D Diabetes mellitus complication detail: D Diabetic retinopathy severity: D Proliferative retinopathy type: P Diabetes mellitus macular edema: D Diabetes mellitus termite control service representative insulin use : D Laterality: L Chronic kidney disease stage: C (5) Dilated cardiomyopathy Current Visit: No Status: Acute (6) Hyperlipidemia Current Visit: No Status: Acute Qualifiers: Hyperlipidemia type: H (7) Hypertensive emergency Current Visit: No Status: Acute (8) Atrial fibrillation Current Visit: No Status: Chronic Qualifiers: Atrial fibrillation type: paroxysmal Qualified Code(s): I48.0 - Paroxysmal atrial fibrillation (9) HTN (hypertension) Current Visit: No Status: Chronic Qualifiers: Hypertension type: essential hypertension Qualified Code(s): I10 - Essential (primary) hypertension (10) Non-compliance Current Visit: No Status: Chronic Subjective Date of service: 03/09/17 Interval history: 61 YO M Hx HTN/HLD/DM2/prior stroke w/ residual L hemiparesis and Afib on Coumadin but suspected noncompliance as INR on admit 1.02 who was found down on bathroom floor 03/02 overnight admitted with R MCA stroke syndrome w/ dysphasia suggesing cardioembolic mechanism. CTH reveals R mid/posterior temporal subacute R temporal infarct. Patient with expressive aphasia. Objective - Constitutional Vitals: Vital Signs - 12hr 03/10/17 03/10/17 03/10/17 00:23 05:06 07:55 Temperature 97.6 F 98.2 F 99.6 F Pulse Rate [ 88 58 L Apical] Pulse Rate [ 20 L Right Radial] Respiratory 18 20 20 Rate Blood Pressure 146/82 110/54 147/73 [Right Arm] O2 Sat by Pulse 98 96 96 Oximetry General appearance: Present: no acute distress, well-nourished - EENT Eyes: PERRL, EOM intact ENT: hearing intact, clear oral mucosa Ears: bilateral: normal - Neck Neck: supple, normal ROM - Respiratory Respiratory effort: normal Respiratory: bilateral: CTA - Breasts Breasts: normal - Cardiovascular Rhythm: regular Heart Sounds: Present: S1 & S2. Absent: gallop, rub Extremities: pulses intact, No edema, normal color, Full ROM - Gastrointestinal General gastrointestinal: Present: soft, non-tender, non-distended, normal bowel sounds - Genitourinary Male genitourinary: normal - Integumentary Integumentary: clear, warm, dry - Musculoskeletal Musculoskeletal: 1, strength equal bilaterally - Neurologic Neurologic: moves all extremities, other (left sided weakness) - Psychiatric Psychiatric: memory intact, appropriate mood/affect, intact judgment & insight - Labs CBC & Chem 7: 03/09/17 02:43 03/03/17 00:45 Labs: Abnormal lab results 03/09/17 03/09/17 03/09/17 Range/Units 11:50 13:18 16:18 PT (12.2-14.9) Sec. INR (0.87-1.13) Heparin Anti-Xa Level 0.10 L (0.3-0.7) U.I./ml POC Glucose 153 H 134 H (70-105) 03/09/17 03/10/17 Range/Units 21:28 06:14 PT 33.9 H (12.2-14.9) Sec. INR 3.31 H (0.87-1.13) Heparin Anti-Xa Level (0.3-0.7) U.I./ml POC Glucose 194 H (70-105)
[2017-03-10] MEDS: GLUCOPHAGE PO SCH (10:46)
[2017-03-10] MEDS: NORVASC PO SCH (10:47)
[2017-03-10] MEDS: ZOLOFT PO SCH (10:47)
[2017-03-10] MEDS: ZESTRIL PO SCH (10:51)
[2017-03-10] MEDS: CATAPRES PO SCH ×2 (10:52→21:34)
[2017-03-10] MEDS: PROTONIX PO SCH (10:52)
[2017-03-10] MEDS: TYLENOL PO PRN (10:52)
[2017-03-10] MEDS: HCTZ PO SCH (10:53)
[2017-03-10] MEDS: COREG PO SCH ×2 (10:53→21:34)
[2017-03-10] MEDS: ZOCOR PO SCH (21:34)
[2017-03-11] MEDS: NOVOLOG SUB-Q SCH ×4 (09:22→22:00)
[2017-03-11] MEDS: ASPIRIN PO SCH (09:28)
[2017-03-11] MEDS: PROTONIX PO SCH (09:29)
[2017-03-11] MEDS: NORVASC PO SCH (09:29)
[2017-03-11] MEDS: ZOLOFT PO SCH (09:30)
[2017-03-11] MEDS: COREG PO SCH ×2 (09:30→22:07)
[2017-03-11] MEDS: GLUCOPHAGE PO SCH (09:31)
[2017-03-11] MEDS: HCTZ PO SCH (09:31)
[2017-03-11] MEDS: TYLENOL PO PRN (09:32)
[2017-03-11] MEDS: CATAPRES PO SCH ×2 (09:32→22:07)
[2017-03-11] MEDS: ZESTRIL PO SCH (09:32)
[2017-03-11 10:33] LABS: Hematocrit 25.9 % (35.5-45.6); Hemoglobin 8.3 gm/dl (11.8-15.2)
[2017-03-11 10:45] LABS: INR 3.51 (0.87-1.13)
--- NOTE | 2017-03-11 11:05 | Progress Note ---
Assessment and Plan Assessment and plan: Right subacute mid/posterior temporal infarct. Continue stroke pathway. MRI reveals subacute nonhemorrhagic infarct involving most of the right temporal lobe and portions of the right parietal lobe cortex and white matter, right yin radiata and right midbrain. Also there is evidence of chronic right basal ganglia and right cerebellar lacunar infarcts. 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 Echocardiogram reveals global left ventricular systolic function that is normal with EF 60-65% with mild concentric left ventricular hypertrophy. Accelerated hypertension. Blood pressure control as noted above. Diabetes mellitus type 2. Continue sliding-scale Accu-Cheks. Atrial fibrillation. Continue rate control. Follow-up echocardiogram. Start heparin IV bridge and Resume Coumadin therapy. Dysphagia. Continue speech therapy. MBS revealed no obstruction and no definite aspiration. Recommendations are for mechanical soft with ground meat and thin liquids. Continue aspiration precautions. DVT prophylaxis. Heparin/Coumadin. Disposition. Awaiting placement. I discussed case with case management. - Patient Problems (1) CVA (cerebral vascular accident) Current Visit: Yes Status: Acute Qualifiers: CVA mechanism: unspecified Precerebral and cerebral artery: P Laterality of affected vessel: L Qualified Code(s): I63.9 - Cerebral infarction, unspecified (2) Acute ischemic stroke Current Visit: No Status: Acute (3) Arterial ischemic stroke, MCA, right, acute Current Visit: No Status: Acute (4) Diabetes mellitus, type 2 Current Visit: No Status: Acute Qualifiers: Diabetes mellitus complication status: D Diabetes mellitus complication detail: D Diabetic retinopathy severity: D Proliferative retinopathy type: P Diabetes mellitus macular edema: D Diabetes mellitus assisted insulin use : D Laterality: L Chronic kidney disease stage: C (5) Dilated cardiomyopathy Current Visit: No Status: Acute (6) Hyperlipidemia Current Visit: No Status: Acute Qualifiers: Hyperlipidemia type: H (7) Hypertensive emergency Current Visit: No Status: Acute (8) Atrial fibrillation Current Visit: No Status: Chronic Qualifiers: Atrial fibrillation type: paroxysmal Qualified Code(s): I48.0 - Paroxysmal atrial fibrillation (9) HTN (hypertension) Current Visit: No Status: Chronic Qualifiers: Hypertension type: essential hypertension Qualified Code(s): I10 - Essential (primary) hypertension (10) Non-compliance Current Visit: No Status: Chronic History Interval history: 61 YO M Hx HTN/HLD/DM2/prior stroke w/ residual L hemiparesis and Afib on Coumadin but suspected noncompliance as INR on admit 1.02 who was found down on bathroom floor 03/02 overnight admitted with R MCA stroke syndrome w/ dysphasia suggesing cardioembolic mechanism. CTH reveals R mid/posterior temporal subacute R temporal infarct. Patient with expressive aphasia. Hospitalist Physical - Constitutional Vitals: Temp Pulse Resp BP Pulse Ox 98.5 F 88 20 137/74 98 03/11/17 07:50 03/11/17 07:50 03/11/17 07:50 03/11/17 09:32 03/11/17 07:50 General appearance: Present: no acute distress, well-nourished - EENT Eyes: Present: PERRL, EOM intact ENT: hearing intact, clear oral mucosa, dentition normal - Neck Neck: Present: supple, normal ROM - Respiratory Respiratory effort: normal Respiratory: bilateral: CTA - Cardiovascular Rhythm: regular Heart Sounds: Present: S1 & S2. Absent: gallop, rub - Extremities Extremities: no ischemia, No edema, Full ROM - Abdominal General gastrointestinal: soft, non-tender, non-distended, normal bowel sounds - Integumentary Integumentary: Present: clear, warm, dry - Neurologic Neurologic: CNII-XII intact, moves all extremities Results - Labs CBC & Chem 7: 03/11/17 10:18 03/03/17 00:45 Labs: Laboratory Last Values WBC 8.0 K/mm3 (4.5-11.0) 03/03/17 00:45 RBC 5.68 M/mm3 (3.65-5.03) H 03/03/17 00:45 Hgb 8.3 gm/dl (11.8-15.2) L 03/11/17 10:18 Hct 25.9 % (35.5-45.6) L 03/11/17 10:18 MCV 70 fl (84-94) L 03/03/17 00:45 MCH 22 pg (28-32) L 03/03/17 00:45 MCHC 31 % (32-34) L 03/03/17 00:45 RDW 17.3 % (13.2-15.2) H 03/03/17 00:45 Plt Count 220 K/mm3 (140-440) 03/11/17 10:18 Lymph % (Auto) 32.1 % (13.4-35.0) 03/03/17 00:45 [place] % (Auto) 9.5 % (0.0-7.3) H 03/03/17 00:45 Eos % (Auto) 2.4 % (0.0-4.3) 03/03/17 00:45 Baso % (Auto) 0.8 % (0.0-1.8) 03/03/17 00:45 Lymph # 2.6 K/mm3 (1.2-5.4) 03/03/17 00:45 [place] # 0.8 K/mm3 (0.0-0.8) 03/03/17 00:45 Eos # 0.2 K/mm3 (0.0-0.4) 03/03/17 00:45 Baso # 0.1 K/mm3 (0.0-0.1) 03/03/17 00:45 Seg Neutrophils % 55.2 % (40.0-70.0) 03/03/17 00:45 Seg Neutrophils # 4.4 K/mm3 (1.8-7.7) 03/03/17 00:45 PT 35.5 Sec. (12.2-14.9) H 03/11/17 10:11 INR 3.51 (0.87-1.13) H 03/11/17 10:11 APTT 25.2 Sec. (24.2-36.6) 03/05/17 10:12 Heparin Anti-Xa Level 0.10 U.I./ml (0.3-0.7) L 03/09/17 13:18 Sodium 133 mmol/L (137-145) L 03/03/17 00:45 Potassium 5.4 mmol/L (3.6-5.0) H 03/03/17 00:45 Chloride 92.5 mmol/L (98-107) L 03/03/17 00:45 Carbon Dioxide 24 mmol/L (22-30) 03/03/17 00:45 Anion Gap 22 mmol/L 03/03/17 00:45 BUN 21 mg/dL (9-20) H 03/03/17 00:45 Creatinine 1.1 mg/dL (0.8-1.5) 03/03/17 00:45 Estimated GFR > 60 ml/min 03/03/17 00:45 BUN/Creatinine Ratio 19.09 % 03/03/17 00:45 Glucose 103 mg/dL (75-100) H 03/03/17 00:45 POC Glucose 95 (70-105) 03/11/17 07:55 Calcium 9.5 mg/dL (8.4-10.2) 03/03/17 00:45 Phosphorus 3.7 mg/dL (2.5-4.5) 03/03/17 00:45 Magnesium 1.9 mg/dL (1.7-2.3) 03/03/17 00:45 Total Bilirubin 0.3 mg/dL (0.1-1.2) 03/03/17 00:45 Direct Bilirubin < 0.2 mg/dL (0-0.2) 03/03/17 00:45 Indirect Bilirubin 0.1 mg/dL 03/03/17 00:45 AST 36 units/L (5-40) 03/03/17 00:45 ALT 17 units/L (7-56) 03/03/17 00:45 Alkaline Phosphatase 77 units/L (35-129) 03/03/17 00:45 Total Creatine Kinase 149 units/L (55-170) 03/03/17 00:45 Troponin T < 0.010 ng/mL (0.00-0.029) 03/03/17 00:45 Total Protein 8.4 g/dL (6.3-8.2) H 03/03/17 00:45 Albumin 3.9 g/dL (3.9-5) 03/03/17 00:45 Albumin/Globulin Ratio 0.9 % 03/03/17 00:45 Triglycerides 121 mg/dL (2-149) 03/04/17 06:51 Cholesterol 123 mg/dL (50-199) 03/04/17 06:51 LDL Cholesterol Direct 66 mg/dL (50-130) 03/04/17 06:51 HDL Cholesterol 33 mg/dL (40-59) L 03/04/17 06:51 Cholesterol/HDL Ratio 3.72 % 03/04/17 06:51 Urine Color Yellow (Yellow) 03/08/17 08:50 Urine Turbidity Clear (Clear) 03/08/17 08:50 Urine pH 6.0 (5.0-7.0) 03/08/17 08:50 Ur Specific [place] 1.011 (1.003-1.030) 03/08/17 08:50 Urine Protein 100 mg/dl mg/dL (Negative) 03/08/17 08:50 Urine Glucose (UA) Neg mg/dL (Negative) 03/08/17 08:50 Urine Ketones Neg mg/dL (Negative) 03/08/17 08:50 Urine Blood Mod (Negative) 03/08/17 08:50 Urine Nitrite Neg (Negative) 03/08/17 08:50 Urine Bilirubin Neg (Negative) 03/08/17 08:50 Urine Urobilinogen < 2.0 mg/dL (<2.0) 03/08/17 08:50 Ur Leukocyte Esterase Tr (Negative) 03/08/17 08:50 Urine WBC (Auto) 6.0 /HPF (0.0-6.0) 03/08/17 08:50 Urine RBC (Auto) 3.0 /HPF (0.0-6.0) 03/08/17 08:50 U Epithel Cells (Auto) < 1.0 /HPF (0-13.0) 03/08/17 08:50 Blood Type A POSITIVE 03/03/17 00:45 Antibody Screen Negative 03/03/17 00:45
--- NOTE | 2017-03-11 11:06 | Progress Note ---
Assessment and Plan Right subacute mid/posterior temporal infarct. Continue stroke pathway. MRI reveals subacute nonhemorrhagic infarct involving most of the right temporal lobe and portions of the right parietal lobe cortex and white matter, right yin radiata and right midbrain. Also there is evidence of chronic right basal ganglia and right cerebellar lacunar infarcts. MRA reveals New right MCA occlusion and high-grade stenosis versus occlusion of the left WELL TENDER. Echocardiogram reveals global left ventricular systolic function that is normal with EF 60-65% with mild concentric left ventricular hypertrophy. Accelerated hypertension. Blood pressure control as noted above. Diabetes mellitus type 2. Continue sliding-scale Accu-Cheks. Atrial fibrillation. Continue rate control. Follow-up echocardiogram. Start heparin IV bridge and Resume Coumadin therapy. Dysphagia. Continue speech therapy. MBS revealed no obstruction and no definite aspiration. Recommendations are for mechanical soft with ground meat and thin liquids. Continue aspiration precautions. DVT prophylaxis. Heparin/Coumadin. - Patient Problems (1) CVA (cerebral vascular accident) Current Visit: Yes Status: Acute Qualifiers: CVA mechanism: unspecified Precerebral and cerebral artery: P Laterality of affected vessel: L Qualified Code(s): I63.9 - Cerebral infarction, unspecified (2) Acute ischemic stroke Current Visit: No Status: Acute (3) Arterial ischemic stroke, MCA, right, acute Current Visit: No Status: Acute (4) Diabetes mellitus, type 2 Current Visit: No Status: Acute Qualifiers: Diabetes mellitus complication status: D Diabetes mellitus complication detail: D Diabetic retinopathy severity: D Proliferative retinopathy type: P Diabetes mellitus macular edema: D Diabetes mellitus mcfp insulin use : D Laterality: L Chronic kidney disease stage: C (5) Dilated cardiomyopathy Current Visit: No Status: Acute (6) Hyperlipidemia Current Visit: No Status: Acute Qualifiers: Hyperlipidemia type: H (7) Hypertensive emergency Current Visit: No Status: Acute (8) Atrial fibrillation Current Visit: No Status: Chronic Qualifiers: Atrial fibrillation type: paroxysmal Qualified Code(s): I48.0 - Paroxysmal atrial fibrillation (9) HTN (hypertension) Current Visit: No Status: Chronic Qualifiers: Hypertension type: essential hypertension Qualified Code(s): I10 - Essential (primary) hypertension (10) Non-compliance Current Visit: No Status: Chronic Subjective Date of service: 03/09/17 Interval history: 61 YO M Hx HTN/HLD/DM2/prior stroke w/ residual L hemiparesis and Afib on Coumadin but suspected noncompliance as INR on admit 1.02 who was found down on bathroom floor 03/02 overnight admitted with R MCA stroke syndrome w/ dysphasia suggesing cardioembolic mechanism. CTH reveals R mid/posterior temporal subacute R temporal infarct. Patient with expressive aphasia. Objective - Constitutional Vitals: Vital Signs - 12hr 03/11/17 03/11/17 03/11/17 00:37 05:21 07:50 Temperature 99 F 99.0 F 98.5 F Pulse Rate [ 87 94 H Apical] Pulse Rate [ 88 Right Radial] Respiratory 20 20 20 Rate Blood Pressure Blood Pressure 132/72 134/78 137/74 [Right Arm] O2 Sat by Pulse 99 99 98 Oximetry 03/11/17 03/11/17 03/11/17 09:29 09:30 09:32 Temperature Pulse Rate [ Apical] Pulse Rate [ Right Radial] Respiratory Rate Blood Pressure 137/74 137/74 137/74 Blood Pressure [Right Arm] O2 Sat by Pulse Oximetry General appearance: Present: no acute distress, well-nourished - EENT Eyes: PERRL, EOM intact ENT: hearing intact, clear oral mucosa Ears: bilateral: normal - Neck Neck: supple, normal ROM - Respiratory Respiratory effort: normal Respiratory: bilateral: CTA - Breasts Breasts: normal - Cardiovascular Rhythm: regular Heart Sounds: Present: S1 & S2. Absent: gallop, rub Extremities: pulses intact, No edema, normal color, Full ROM - Gastrointestinal General gastrointestinal: Present: soft, non-tender, non-distended, normal bowel sounds - Genitourinary Male genitourinary: normal - Integumentary Integumentary: clear, warm, dry - Musculoskeletal Musculoskeletal: 1, strength equal bilaterally - Neurologic Neurologic: moves all extremities - Psychiatric Psychiatric: memory intact, appropriate mood/affect, intact judgment & insight - Labs CBC & Chem 7: 03/11/17 10:18 03/03/17 00:45 Labs: Abnormal lab results 03/10/17 03/10/17 03/11/17 Range/Units 16:22 22:52 10:11 Hgb (11.8-15.2) gm/dl Hct (35.5-45.6) % PT 35.5 H (12.2-14.9) Sec. INR 3.51 H (0.87-1.13) POC Glucose 128 H 136 H (70-105) 03/11/17 Range/Units 10:18 Hgb 8.3 L (11.8-15.2) gm/dl Hct 25.9 L (35.5-45.6) % PT (12.2-14.9) Sec. INR (0.87-1.13) POC Glucose (70-105)
[2017-03-11] MEDS: ZOCOR PO SCH (22:07)
[2017-03-12 07:58] LABS: INR 3.18 (0.87-1.13)
[2017-03-12] MEDS: ASPIRIN PO SCH (11:55)
[2017-03-12] MEDS: PROTONIX PO SCH (11:55)
[2017-03-12] MEDS: ZESTRIL PO SCH (11:55)
[2017-03-12] MEDS: HCTZ PO SCH (11:55)
[2017-03-12] MEDS: ZOLOFT PO SCH (11:55)
[2017-03-12] MEDS: CATAPRES PO SCH ×2 (11:55→21:12)
[2017-03-12] MEDS: COREG PO SCH ×2 (11:56→21:11)
[2017-03-12] MEDS: NORVASC PO SCH (11:56)
[2017-03-12] MEDS: GLUCOPHAGE PO SCH (11:58)
--- NOTE | 2017-03-12 14:30 | Progress Note ---
Assessment and Plan Assessment and plan: -Acute embolic ischemic stroke, present on admission -Atrial fibrillation, chronic continue anticoagulation but hold levels supratherapeutic -Hypertension Await placement History Interval history: Patient seen and examined. Follow up on cva and aphasia still present. Overnight uneventful. No cp, sob, n/v or severe headaches. Imaging, old records , testing, labs, nursing notes reviewed. Plan discussed with patient. So like he was Hospitalist Physical - Physical exam Narrative exam: GEN: A phasic ill-appearing, wake alert CVS: Irregular irregular NORMAL S1S2 LUNGS/CHEST: CTA B, NORMAL CHEST EXPANSION B, GOOD AIR ENTRY B ABD: SOFT NTND, GBS, NO REBOUND OR GUARDING EXT/SKIN: NO SIGNIFICANT EDEMA OR RASH MSK: Left side paralysis NEURO: CN 2-12 GROSSLY INTACT, NO new FOCAL DEFICITS PSY: CALM - Constitutional Vitals: Temp Pulse Resp BP Pulse Ox 98 F 83 16 157/97 98 03/12/17 09:55 03/12/17 13:24 03/12/17 09:55 03/12/17 13:24 03/12/17 09:55 General appearance: Present: no acute distress, well-nourished Results - Labs CBC & Chem 7: 03/11/17 10:18 03/03/17 00:45 Labs: Laboratory Last Values WBC 8.0 K/mm3 (4.5-11.0) 03/03/17 00:45 RBC 5.68 M/mm3 (3.65-5.03) H 03/03/17 00:45 Hgb 8.3 gm/dl (11.8-15.2) L 03/11/17 10:18 Hct 25.9 % (35.5-45.6) L 03/11/17 10:18 MCV 70 fl (84-94) L 03/03/17 00:45 MCH 22 pg (28-32) L 03/03/17 00:45 MCHC 31 % (32-34) L 03/03/17 00:45 RDW 17.3 % (13.2-15.2) H 03/03/17 00:45 Plt Count 220 K/mm3 (140-440) 03/11/17 10:18 Lymph % (Auto) 32.1 % (13.4-35.0) 03/03/17 00:45 [place] % (Auto) 9.5 % (0.0-7.3) H 03/03/17 00:45 Eos % (Auto) 2.4 % (0.0-4.3) 03/03/17 00:45 Baso % (Auto) 0.8 % (0.0-1.8) 03/03/17 00:45 Lymph # 2.6 K/mm3 (1.2-5.4) 03/03/17 00:45 [place] # 0.8 K/mm3 (0.0-0.8) 03/03/17 00:45 Eos # 0.2 K/mm3 (0.0-0.4) 03/03/17 00:45 Baso # 0.1 K/mm3 (0.0-0.1) 03/03/17 00:45 Seg Neutrophils % 55.2 % (40.0-70.0) 03/03/17 00:45 Seg Neutrophils # 4.4 K/mm3 (1.8-7.7) 03/03/17 00:45 PT 32.8 Sec. (12.2-14.9) H 03/12/17 06:37 INR 3.18 (0.87-1.13) H 03/12/17 06:37 APTT 25.2 Sec. (24.2-36.6) 03/05/17 10:12 Heparin Anti-Xa Level 0.10 U.I./ml (0.3-0.7) L 03/09/17 13:18 Sodium 133 mmol/L (137-145) L 03/03/17 00:45 Potassium 5.4 mmol/L (3.6-5.0) H 03/03/17 00:45 Chloride 92.5 mmol/L (98-107) L 03/03/17 00:45 Carbon Dioxide 24 mmol/L (22-30) 03/03/17 00:45 Anion Gap 22 mmol/L 03/03/17 00:45 BUN 21 mg/dL (9-20) H 03/03/17 00:45 Creatinine 1.1 mg/dL (0.8-1.5) 03/03/17 00:45 Estimated GFR > 60 ml/min 03/03/17 00:45 BUN/Creatinine Ratio 19.09 % 03/03/17 00:45 Glucose 103 mg/dL (75-100) H 03/03/17 00:45 POC Glucose 112 (70-105) H 03/12/17 12:33 Calcium 9.5 mg/dL (8.4-10.2) 03/03/17 00:45 Phosphorus 3.7 mg/dL (2.5-4.5) 03/03/17 00:45 Magnesium 1.9 mg/dL (1.7-2.3) 03/03/17 00:45 Total Bilirubin 0.3 mg/dL (0.1-1.2) 03/03/17 00:45 Direct Bilirubin < 0.2 mg/dL (0-0.2) 03/03/17 00:45 Indirect Bilirubin 0.1 mg/dL 03/03/17 00:45 AST 36 units/L (5-40) 03/03/17 00:45 ALT 17 units/L (7-56) 03/03/17 00:45 Alkaline Phosphatase 77 units/L (35-129) 03/03/17 00:45 Total Creatine Kinase 149 units/L (55-170) 03/03/17 00:45 Troponin T < 0.010 ng/mL (0.00-0.029) 03/03/17 00:45 Total Protein 8.4 g/dL (6.3-8.2) H 03/03/17 00:45 Albumin 3.9 g/dL (3.9-5) 03/03/17 00:45 Albumin/Globulin Ratio 0.9 % 03/03/17 00:45 Triglycerides 121 mg/dL (2-149) 03/04/17 06:51 Cholesterol 123 mg/dL (50-199) 03/04/17 06:51 LDL Cholesterol Direct 66 mg/dL (50-130) 03/04/17 06:51 HDL Cholesterol 33 mg/dL (40-59) L 03/04/17 06:51 Cholesterol/HDL Ratio 3.72 % 03/04/17 06:51 Urine Color Yellow (Yellow) 03/08/17 08:50 Urine Turbidity Clear (Clear) 03/08/17 08:50 Urine pH 6.0 (5.0-7.0) 03/08/17 08:50 Ur Specific [place] 1.011 (1.003-1.030) 03/08/17 08:50 Urine Protein 100 mg/dl mg/dL (Negative) 03/08/17 08:50 Urine Glucose (UA) Neg mg/dL (Negative) 03/08/17 08:50 Urine Ketones Neg mg/dL (Negative) 03/08/17 08:50 Urine Blood Mod (Negative) 03/08/17 08:50 Urine Nitrite Neg (Negative) 03/08/17 08:50 Urine Bilirubin Neg (Negative) 03/08/17 08:50 Urine Urobilinogen < 2.0 mg/dL (<2.0) 03/08/17 08:50 Ur Leukocyte Esterase Tr (Negative) 03/08/17 08:50 Urine WBC (Auto) 6.0 /HPF (0.0-6.0) 03/08/17 08:50 Urine RBC (Auto) 3.0 /HPF (0.0-6.0) 03/08/17 08:50 U Epithel Cells (Auto) < 1.0 /HPF (0-13.0) 03/08/17 08:50 Blood Type A POSITIVE 03/03/17 00:45 Antibody Screen Negative 03/03/17 00:45
[2017-03-12] MEDS: D5/0.45NS 1,000 ML IV SCH (21:10)
[2017-03-12] MEDS: NOVOLOG SUB-Q SCH (21:13)
[2017-03-12] MEDS: ZOCOR PO SCH (21:13)
[2017-03-13 05:31] LABS: Hematocrit 28.5 % (35.5-45.6); Hemoglobin 9.1 gm/dl (11.8-15.2)
[2017-03-13 05:46] LABS: INR 2.46 (0.87-1.13)
[2017-03-13] MEDS: NOVOLOG SUB-Q SCH ×5 (09:23→22:44)
[2017-03-13] MEDS: ZOLOFT PO SCH (09:27)
[2017-03-13] MEDS: HCTZ PO SCH (09:27)
[2017-03-13] MEDS: ASPIRIN PO SCH (09:27)
[2017-03-13] MEDS: PROTONIX PO SCH (09:27)
[2017-03-13] MEDS: ZESTRIL PO SCH (09:27)
[2017-03-13] MEDS: NORVASC PO SCH (09:28)
[2017-03-13] MEDS: COREG PO SCH ×2 (09:28→22:43)
[2017-03-13] MEDS: CATAPRES PO SCH ×2 (09:28→22:43)
[2017-03-13] MEDS: GLUCOPHAGE PO SCH (09:31)
--- NOTE | 2017-03-13 12:47 | Progress Note ---
Assessment and Plan Assessment and plan: Patient is 61 yo man with a h/o htn, dlp, dm2, prior stroke with left hemiparesis and afib, noncompliant on coumadin who presented with being found on the floor overnight, no last known baseline. CTH reveals right subacute right temporal infarct. Now with expressive aphasia. -Acute embolic ischemic stroke, present on admission -Atrial fibrillation, chronic continue anticoagulation -Hypertension Await placement History Interval history: Patient seen and examined. Follow up on cva and aphasia still present. Overnight uneventful. No cp, sob, n/v or severe headaches. Imaging, old records , testing, labs, nursing notes reviewed. Hospitalist Physical - Physical exam Narrative exam: GEN: A phasic ill-appearing, wake alert CVS: Irregular irregular NORMAL S1S2 LUNGS/CHEST: CTA B, NORMAL CHEST EXPANSION B, GOOD AIR ENTRY B ABD: SOFT NTND, GBS, NO REBOUND OR GUARDING EXT/SKIN: NO SIGNIFICANT EDEMA OR RASH MSK: Left side paralysis NEURO: CN 2-12 GROSSLY INTACT, NO new FOCAL DEFICITS PSY: CALM - Constitutional Vitals: Temp Pulse Resp BP Pulse Ox 98.6 F 94 H 18 150/75 99 03/13/17 08:00 03/13/17 09:28 03/13/17 08:00 03/13/17 09:28 03/13/17 08:00 General appearance: Present: no acute distress, well-nourished Results - Labs CBC & Chem 7: 03/13/17 05:06 03/03/17 00:45 Labs: Laboratory Last Values WBC 8.0 K/mm3 (4.5-11.0) 03/03/17 00:45 RBC 5.68 M/mm3 (3.65-5.03) H 03/03/17 00:45 Hgb 9.1 gm/dl (11.8-15.2) L 03/13/17 05:06 Hct 28.5 % (35.5-45.6) L 03/13/17 05:06 MCV 70 fl (84-94) L 03/03/17 00:45 MCH 22 pg (28-32) L 03/03/17 00:45 MCHC 31 % (32-34) L 03/03/17 00:45 RDW 17.3 % (13.2-15.2) H 03/03/17 00:45 Plt Count 266 K/mm3 (140-440) 03/13/17 05:06 Lymph % (Auto) 32.1 % (13.4-35.0) 03/03/17 00:45 [place] % (Auto) 9.5 % (0.0-7.3) H 03/03/17 00:45 Eos % (Auto) 2.4 % (0.0-4.3) 03/03/17 00:45 Baso % (Auto) 0.8 % (0.0-1.8) 03/03/17 00:45 Lymph # 2.6 K/mm3 (1.2-5.4) 03/03/17 00:45 [place] # 0.8 K/mm3 (0.0-0.8) 03/03/17 00:45 Eos # 0.2 K/mm3 (0.0-0.4) 03/03/17 00:45 Baso # 0.1 K/mm3 (0.0-0.1) 03/03/17 00:45 Seg Neutrophils % 55.2 % (40.0-70.0) 03/03/17 00:45 Seg Neutrophils # 4.4 K/mm3 (1.8-7.7) 03/03/17 00:45 PT 26.8 Sec. (12.2-14.9) H 03/13/17 05:06 INR 2.46 (0.87-1.13) H 03/13/17 05:06 APTT 25.2 Sec. (24.2-36.6) 03/05/17 10:12 Heparin Anti-Xa Level 0.10 U.I./ml (0.3-0.7) L 03/09/17 13:18 Sodium 133 mmol/L (137-145) L 03/03/17 00:45 Potassium 5.4 mmol/L (3.6-5.0) H 03/03/17 00:45 Chloride 92.5 mmol/L (98-107) L 03/03/17 00:45 Carbon Dioxide 24 mmol/L (22-30) 03/03/17 00:45 Anion Gap 22 mmol/L 03/03/17 00:45 BUN 21 mg/dL (9-20) H 03/03/17 00:45 Creatinine 1.1 mg/dL (0.8-1.5) 03/03/17 00:45 Estimated GFR > 60 ml/min 03/03/17 00:45 BUN/Creatinine Ratio 19.09 % 03/03/17 00:45 Glucose 103 mg/dL (75-100) H 03/03/17 00:45 POC Glucose 97 (70-105) 03/12/17 21:35 Calcium 9.5 mg/dL (8.4-10.2) 03/03/17 00:45 Phosphorus 3.7 mg/dL (2.5-4.5) 03/03/17 00:45 Magnesium 1.9 mg/dL (1.7-2.3) 03/03/17 00:45 Total Bilirubin 0.3 mg/dL (0.1-1.2) 03/03/17 00:45 Direct Bilirubin < 0.2 mg/dL (0-0.2) 03/03/17 00:45 Indirect Bilirubin 0.1 mg/dL 03/03/17 00:45 AST 36 units/L (5-40) 03/03/17 00:45 ALT 17 units/L (7-56) 03/03/17 00:45 Alkaline Phosphatase 77 units/L (35-129) 03/03/17 00:45 Total Creatine Kinase 149 units/L (55-170) 03/03/17 00:45 Troponin T < 0.010 ng/mL (0.00-0.029) 03/03/17 00:45 Total Protein 8.4 g/dL (6.3-8.2) H 03/03/17 00:45 Albumin 3.9 g/dL (3.9-5) 03/03/17 00:45 Albumin/Globulin Ratio 0.9 % 03/03/17 00:45 Triglycerides 121 mg/dL (2-149) 03/04/17 06:51 Cholesterol 123 mg/dL (50-199) 03/04/17 06:51 LDL Cholesterol Direct 66 mg/dL (50-130) 03/04/17 06:51 HDL Cholesterol 33 mg/dL (40-59) L 03/04/17 06:51 Cholesterol/HDL Ratio 3.72 % 03/04/17 06:51 Urine Color Yellow (Yellow) 03/08/17 08:50 Urine Turbidity Clear (Clear) 03/08/17 08:50 Urine pH 6.0 (5.0-7.0) 03/08/17 08:50 Ur Specific [place] 1.011 (1.003-1.030) 03/08/17 08:50 Urine Protein 100 mg/dl mg/dL (Negative) 03/08/17 08:50 Urine Glucose (UA) Neg mg/dL (Negative) 03/08/17 08:50 Urine Ketones Neg mg/dL (Negative) 03/08/17 08:50 Urine Blood Mod (Negative) 03/08/17 08:50 Urine Nitrite Neg (Negative) 03/08/17 08:50 Urine Bilirubin Neg (Negative) 03/08/17 08:50 Urine Urobilinogen < 2.0 mg/dL (<2.0) 03/08/17 08:50 Ur Leukocyte Esterase Tr (Negative) 03/08/17 08:50 Urine WBC (Auto) 6.0 /HPF (0.0-6.0) 03/08/17 08:50 Urine RBC (Auto) 3.0 /HPF (0.0-6.0) 03/08/17 08:50 U Epithel Cells (Auto) < 1.0 /HPF (0-13.0) 03/08/17 08:50 Blood Type A POSITIVE 03/03/17 00:45 Antibody Screen Negative 03/03/17 00:45
[2017-03-13] MEDS: D5/0.45NS 1,000 ML IV SCH (14:47)
[2017-03-13] MEDS: COUMADIN PO SCH (18:17)
[2017-03-13] MEDS: TYLENOL PO PRN (19:00)
[2017-03-13] MEDS: ZOCOR PO SCH (22:43)
[2017-03-14] MEDS: D5/0.45NS 1,000 ML IV SCH ×2 (03:40→18:44)
[2017-03-14 06:13] LABS: INR 2.5 (0.87-1.13)
[2017-03-14] MEDS: NOVOLOG SUB-Q SCH ×4 (08:15→23:30)
[2017-03-14] MEDS: GLUCOPHAGE PO SCH (08:16)
[2017-03-14] MEDS: ASPIRIN PO SCH (10:00)
[2017-03-14] MEDS: HCTZ PO SCH (10:00)
[2017-03-14] MEDS: ZOLOFT PO SCH (10:00)
[2017-03-14] MEDS: PROTONIX PO SCH (10:00)
[2017-03-14] MEDS: ZESTRIL PO SCH (10:01)
[2017-03-14] MEDS: NORVASC PO SCH (10:01)
[2017-03-14] MEDS: CATAPRES PO SCH ×2 (10:02→23:26)
[2017-03-14] MEDS: COREG PO SCH ×2 (10:02→23:26)
[2017-03-14] MEDS: TYLENOL PO PRN (10:05)
--- NOTE | 2017-03-14 10:52 | Progress Note ---
Assessment and Plan Assessment and plan: Patient is 61 yo man with a h/o htn, dlp, dm2, prior stroke with left hemiparesis and afib, noncompliant on coumadin who presented with being found on the floor overnight, no last known baseline. CTH reveals right subacute right temporal infarct. Now with expressive aphasia. -Acute embolic ischemic stroke, present on admission -Atrial fibrillation, chronic continue anticoagulation -Hypertension Await placement History Interval history: Patient seen and examined. Follow up on cva and aphasia still present. Overnight uneventful. No cp, sob, n/v or severe headaches. Imaging, old records , testing, labs, nursing notes reviewed. Hospitalist Physical - Physical exam Narrative exam: GEN: A phasic ill-appearing, wake alert CVS: Irregular irregular NORMAL S1S2 LUNGS/CHEST: CTA B, NORMAL CHEST EXPANSION B, GOOD AIR ENTRY B ABD: SOFT NTND, GBS, NO REBOUND OR GUARDING EXT/SKIN: NO SIGNIFICANT EDEMA OR RASH MSK: Left side paralysis NEURO: CN 2-12 GROSSLY INTACT, NO new FOCAL DEFICITS PSY: CALM - Constitutional Vitals: Temp Pulse Resp BP Pulse Ox 97.9 F 91 H 20 158/77 99 03/14/17 08:00 03/14/17 10:02 03/14/17 08:00 03/14/17 10:02 03/14/17 08:00 General appearance: Present: no acute distress, well-nourished Results - Labs CBC & Chem 7: 03/13/17 05:06 03/03/17 00:45 Labs: Laboratory Last Values WBC 8.0 K/mm3 (4.5-11.0) 03/03/17 00:45 RBC 5.68 M/mm3 (3.65-5.03) H 03/03/17 00:45 Hgb 9.1 gm/dl (11.8-15.2) L 03/13/17 05:06 Hct 28.5 % (35.5-45.6) L 03/13/17 05:06 MCV 70 fl (84-94) L 03/03/17 00:45 MCH 22 pg (28-32) L 03/03/17 00:45 MCHC 31 % (32-34) L 03/03/17 00:45 RDW 17.3 % (13.2-15.2) H 03/03/17 00:45 Plt Count 266 K/mm3 (140-440) 03/13/17 05:06 Lymph % (Auto) 32.1 % (13.4-35.0) 03/03/17 00:45 [place] % (Auto) 9.5 % (0.0-7.3) H 03/03/17 00:45 Eos % (Auto) 2.4 % (0.0-4.3) 03/03/17 00:45 Baso % (Auto) 0.8 % (0.0-1.8) 03/03/17 00:45 Lymph # 2.6 K/mm3 (1.2-5.4) 03/03/17 00:45 [place] # 0.8 K/mm3 (0.0-0.8) 03/03/17 00:45 Eos # 0.2 K/mm3 (0.0-0.4) 03/03/17 00:45 Baso # 0.1 K/mm3 (0.0-0.1) 03/03/17 00:45 Seg Neutrophils % 55.2 % (40.0-70.0) 03/03/17 00:45 Seg Neutrophils # 4.4 K/mm3 (1.8-7.7) 03/03/17 00:45 PT 27.1 Sec. (12.2-14.9) H 03/14/17 05:34 INR 2.50 (0.87-1.13) H 03/14/17 05:34 APTT 25.2 Sec. (24.2-36.6) 03/05/17 10:12 Heparin Anti-Xa Level 0.10 U.I./ml (0.3-0.7) L 03/09/17 13:18 Sodium 133 mmol/L (137-145) L 03/03/17 00:45 Potassium 5.4 mmol/L (3.6-5.0) H 03/03/17 00:45 Chloride 92.5 mmol/L (98-107) L 03/03/17 00:45 Carbon Dioxide 24 mmol/L (22-30) 03/03/17 00:45 Anion Gap 22 mmol/L 03/03/17 00:45 BUN 21 mg/dL (9-20) H 03/03/17 00:45 Creatinine 1.1 mg/dL (0.8-1.5) 03/03/17 00:45 Estimated GFR > 60 ml/min 03/03/17 00:45 BUN/Creatinine Ratio 19.09 % 03/03/17 00:45 Glucose 103 mg/dL (75-100) H 03/03/17 00:45 POC Glucose 99 (70-105) 03/14/17 08:10 Calcium 9.5 mg/dL (8.4-10.2) 03/03/17 00:45 Phosphorus 3.7 mg/dL (2.5-4.5) 03/03/17 00:45 Magnesium 1.9 mg/dL (1.7-2.3) 03/03/17 00:45 Total Bilirubin 0.3 mg/dL (0.1-1.2) 03/03/17 00:45 Direct Bilirubin < 0.2 mg/dL (0-0.2) 03/03/17 00:45 Indirect Bilirubin 0.1 mg/dL 03/03/17 00:45 AST 36 units/L (5-40) 03/03/17 00:45 ALT 17 units/L (7-56) 03/03/17 00:45 Alkaline Phosphatase 77 units/L (35-129) 03/03/17 00:45 Total Creatine Kinase 149 units/L (55-170) 03/03/17 00:45 Troponin T < 0.010 ng/mL (0.00-0.029) 03/03/17 00:45 Total Protein 8.4 g/dL (6.3-8.2) H 03/03/17 00:45 Albumin 3.9 g/dL (3.9-5) 03/03/17 00:45 Albumin/Globulin Ratio 0.9 % 03/03/17 00:45 Triglycerides 121 mg/dL (2-149) 03/04/17 06:51 Cholesterol 123 mg/dL (50-199) 03/04/17 06:51 LDL Cholesterol Direct 66 mg/dL (50-130) 03/04/17 06:51 HDL Cholesterol 33 mg/dL (40-59) L 03/04/17 06:51 Cholesterol/HDL Ratio 3.72 % 03/04/17 06:51 Urine Color Yellow (Yellow) 03/08/17 08:50 Urine Turbidity Clear (Clear) 03/08/17 08:50 Urine pH 6.0 (5.0-7.0) 03/08/17 08:50 Ur Specific [place] 1.011 (1.003-1.030) 03/08/17 08:50 Urine Protein 100 mg/dl mg/dL (Negative) 03/08/17 08:50 Urine Glucose (UA) Neg mg/dL (Negative) 03/08/17 08:50 Urine Ketones Neg mg/dL (Negative) 03/08/17 08:50 Urine Blood Mod (Negative) 03/08/17 08:50 Urine Nitrite Neg (Negative) 03/08/17 08:50 Urine Bilirubin Neg (Negative) 03/08/17 08:50 Urine Urobilinogen < 2.0 mg/dL (<2.0) 03/08/17 08:50 Ur Leukocyte Esterase Tr (Negative) 03/08/17 08:50 Urine WBC (Auto) 6.0 /HPF (0.0-6.0) 03/08/17 08:50 Urine RBC (Auto) 3.0 /HPF (0.0-6.0) 03/08/17 08:50 U Epithel Cells (Auto) < 1.0 /HPF (0-13.0) 03/08/17 08:50 Blood Type A POSITIVE 03/03/17 00:45 Antibody Screen Negative 03/03/17 00:45
[2017-03-14] MEDS: COUMADIN PO SCH (17:51)
[2017-03-14] MEDS: ZOCOR PO SCH (23:27)
[2017-03-15] MEDS: NOVOLOG SUB-Q SCH ×4 (08:12→22:54)
[2017-03-15] MEDS: GLUCOPHAGE PO SCH (08:13)
[2017-03-15 08:49] LABS: INR 3.45 (0.87-1.13)
[2017-03-15] MEDS: ZOLOFT PO SCH (09:35)
[2017-03-15] MEDS: PROTONIX PO SCH (09:35)
[2017-03-15] MEDS: ASPIRIN PO SCH (09:35)
[2017-03-15] MEDS: HCTZ PO SCH (09:35)
[2017-03-15] MEDS: CATAPRES PO SCH ×2 (09:36→22:45)
[2017-03-15] MEDS: COREG PO SCH ×2 (09:37→22:45)
[2017-03-15] MEDS: ZESTRIL PO SCH (09:37)
[2017-03-15] MEDS: NORVASC PO SCH (09:37)
--- NOTE | 2017-03-15 12:28 | Progress Note ---
Assessment and Plan Assessment and plan: Patient is 61 yo man with a h/o htn, dlp, dm2, prior stroke with left hemiparesis and afib, noncompliant on coumadin who presented with being found on the floor overnight, no last known baseline. CTH reveals right subacute right temporal infarct. Now with expressive aphasia. -Acute embolic ischemic stroke, present on admission -Atrial fibrillation, chronic continue anticoagulation -Hypertension Await placement History Interval history: Patient seen and examined. Follow up on cva and aphasia still present. Overnight uneventful. No cp, sob, n/v or severe headaches. Imaging, old records , testing, labs, nursing notes reviewed. Hospitalist Physical - Physical exam Narrative exam: GEN: A phasic ill-appearing, wake alert CVS: Irregular irregular NORMAL S1S2 LUNGS/CHEST: CTA B, NORMAL CHEST EXPANSION B, GOOD AIR ENTRY B ABD: SOFT NTND, GBS, NO REBOUND OR GUARDING EXT/SKIN: NO SIGNIFICANT EDEMA OR RASH MSK: Left side paralysis NEURO: CN 2-12 GROSSLY INTACT, NO new FOCAL DEFICITS PSY: CALM - Constitutional Vitals: Temp Pulse Resp BP Pulse Ox 97.8 F 86 22 141/74 99 03/15/17 05:28 03/15/17 09:37 03/15/17 05:28 03/15/17 09:37 03/15/17 05:28 General appearance: Present: no acute distress, well-nourished Results - Labs CBC & Chem 7: 03/13/17 05:06 03/03/17 00:45 Labs: Laboratory Last Values WBC 8.0 K/mm3 (4.5-11.0) 03/03/17 00:45 RBC 5.68 M/mm3 (3.65-5.03) H 03/03/17 00:45 Hgb 9.1 gm/dl (11.8-15.2) L 03/13/17 05:06 Hct 28.5 % (35.5-45.6) L 03/13/17 05:06 MCV 70 fl (84-94) L 03/03/17 00:45 MCH 22 pg (28-32) L 03/03/17 00:45 MCHC 31 % (32-34) L 03/03/17 00:45 RDW 17.3 % (13.2-15.2) H 03/03/17 00:45 Plt Count 266 K/mm3 (140-440) 03/13/17 05:06 Lymph % (Auto) 32.1 % (13.4-35.0) 03/03/17 00:45 [place] % (Auto) 9.5 % (0.0-7.3) H 03/03/17 00:45 Eos % (Auto) 2.4 % (0.0-4.3) 03/03/17 00:45 Baso % (Auto) 0.8 % (0.0-1.8) 03/03/17 00:45 Lymph # 2.6 K/mm3 (1.2-5.4) 03/03/17 00:45 [place] # 0.8 K/mm3 (0.0-0.8) 03/03/17 00:45 Eos # 0.2 K/mm3 (0.0-0.4) 03/03/17 00:45 Baso # 0.1 K/mm3 (0.0-0.1) 03/03/17 00:45 Seg Neutrophils % 55.2 % (40.0-70.0) 03/03/17 00:45 Seg Neutrophils # 4.4 K/mm3 (1.8-7.7) 03/03/17 00:45 PT 35.0 Sec. (12.2-14.9) H 03/15/17 07:28 INR 3.45 (0.87-1.13) H 03/15/17 07:28 APTT 25.2 Sec. (24.2-36.6) 03/05/17 10:12 Heparin Anti-Xa Level 0.10 U.I./ml (0.3-0.7) L 03/09/17 13:18 Sodium 133 mmol/L (137-145) L 03/03/17 00:45 Potassium 5.4 mmol/L (3.6-5.0) H 03/03/17 00:45 Chloride 92.5 mmol/L (98-107) L 03/03/17 00:45 Carbon Dioxide 24 mmol/L (22-30) 03/03/17 00:45 Anion Gap 22 mmol/L 03/03/17 00:45 BUN 21 mg/dL (9-20) H 03/03/17 00:45 Creatinine 1.1 mg/dL (0.8-1.5) 03/03/17 00:45 Estimated GFR > 60 ml/min 03/03/17 00:45 BUN/Creatinine Ratio 19.09 % 03/03/17 00:45 Glucose 103 mg/dL (75-100) H 03/03/17 00:45 POC Glucose 92 (70-105) 03/15/17 08:04 Calcium 9.5 mg/dL (8.4-10.2) 03/03/17 00:45 Phosphorus 3.7 mg/dL (2.5-4.5) 03/03/17 00:45 Magnesium 1.9 mg/dL (1.7-2.3) 03/03/17 00:45 Total Bilirubin 0.3 mg/dL (0.1-1.2) 03/03/17 00:45 Direct Bilirubin < 0.2 mg/dL (0-0.2) 03/03/17 00:45 Indirect Bilirubin 0.1 mg/dL 03/03/17 00:45 AST 36 units/L (5-40) 03/03/17 00:45 ALT 17 units/L (7-56) 03/03/17 00:45 Alkaline Phosphatase 77 units/L (35-129) 03/03/17 00:45 Total Creatine Kinase 149 units/L (55-170) 03/03/17 00:45 Troponin T < 0.010 ng/mL (0.00-0.029) 03/03/17 00:45 Total Protein 8.4 g/dL (6.3-8.2) H 03/03/17 00:45 Albumin 3.9 g/dL (3.9-5) 03/03/17 00:45 Albumin/Globulin Ratio 0.9 % 03/03/17 00:45 Triglycerides 121 mg/dL (2-149) 03/04/17 06:51 Cholesterol 123 mg/dL (50-199) 03/04/17 06:51 LDL Cholesterol Direct 66 mg/dL (50-130) 03/04/17 06:51 HDL Cholesterol 33 mg/dL (40-59) L 03/04/17 06:51 Cholesterol/HDL Ratio 3.72 % 03/04/17 06:51 Urine Color Yellow (Yellow) 03/08/17 08:50 Urine Turbidity Clear (Clear) 03/08/17 08:50 Urine pH 6.0 (5.0-7.0) 03/08/17 08:50 Ur Specific [place] 1.011 (1.003-1.030) 03/08/17 08:50 Urine Protein 100 mg/dl mg/dL (Negative) 03/08/17 08:50 Urine Glucose (UA) Neg mg/dL (Negative) 03/08/17 08:50 Urine Ketones Neg mg/dL (Negative) 03/08/17 08:50 Urine Blood Mod (Negative) 03/08/17 08:50 Urine Nitrite Neg (Negative) 03/08/17 08:50 Urine Bilirubin Neg (Negative) 03/08/17 08:50 Urine Urobilinogen < 2.0 mg/dL (<2.0) 03/08/17 08:50 Ur Leukocyte Esterase Tr (Negative) 03/08/17 08:50 Urine WBC (Auto) 6.0 /HPF (0.0-6.0) 03/08/17 08:50 Urine RBC (Auto) 3.0 /HPF (0.0-6.0) 03/08/17 08:50 U Epithel Cells (Auto) < 1.0 /HPF (0-13.0) 03/08/17 08:50 Blood Type A POSITIVE 03/03/17 00:45 Antibody Screen Negative 03/03/17 00:45
[2017-03-15] MEDS: D5/0.45NS 1,000 ML IV SCH (13:55)
[2017-03-15] MEDS: TYLENOL PO PRN (20:27)
[2017-03-15] MEDS: ZOCOR PO SCH (22:45)
[2017-03-16] MEDS: D5/0.45NS 1,000 ML IV SCH ×2 (06:03→21:50)
[2017-03-16 08:18] LABS: INR 3.41 (0.87-1.13)
[2017-03-16] MEDS: NOVOLOG SUB-Q SCH ×4 (08:23→21:29)
[2017-03-16] MEDS: GLUCOPHAGE PO SCH (09:00)
[2017-03-16] MEDS: ASPIRIN PO SCH (09:08)
[2017-03-16] MEDS: ZOLOFT PO SCH (09:09)
[2017-03-16] MEDS: NORVASC PO SCH (09:10)
[2017-03-16] MEDS: PROTONIX PO SCH (09:10)
[2017-03-16] MEDS: HCTZ PO SCH (09:10)
[2017-03-16] MEDS: ZESTRIL PO SCH (09:11)
[2017-03-16] MEDS: CATAPRES PO SCH ×2 (09:11→21:47)
[2017-03-16] MEDS: COREG PO SCH ×2 (09:11→21:47)
--- NOTE | 2017-03-16 09:15 | Discharge Summary ---
Providers - Providers Date of Admission: 03/03/17 03:00 Date of discharge: 03/16/17 Attending physician: ANAM ASENCIO MD 03/03/17 15:34 Speech Therapy Evaluation and Treat [CONS] Routine Reason For Exam: Stroke Protocol 03/16/17 05:08 Consult to Dietitian/Nutrition [CONS] Routine Physician Instructions: Reason For Exam: Reason for Consult: low julia score Primary care physician: RENAL NURSE Hospitalization Reason for admission: cva Condition: Stable Hospital course: Patient is 61 yo man with a h/o htn, dlp, dm2, prior stroke with left hemiparesis and afib, noncompliant on coumadin who presented with being found on the floor overnight, no last known baseline. CT head reveals right subacute right temporal infarct. Now with expressive aphasia. Echocardiogram revealed an ejection fraction of 60%. Assessment discussion was held with patient compliance. Hospital course was prolonged due to placement reasons as accepting facility was awaiting payments from family. Patient was seen by neurology and also by rehabilitation. On Discharge Coumadin was adjusted to 5 mg to be continued at home. DISCHARGE DIAGNOSIS -Acute embolic ischemic stroke, present on admission -Atrial fibrillation, chronic continue anticoagulation -Hypokalemia -Hypertension -Left sided hemiparesis -Secondary coagulopathy due to Warfarin. [facility] Time spent for discharge: 35 MINS Core Measure Documentation - Palliative Care Palliative Care/ Comfort Measures: Not Applicable - Core Measures Any of the following diagnoses?: stroke - VTE Discharge Requirements Deep Vein Thrombosis/Pulmonary Embolism Present on Admission: No - Stroke Discharge Requirements Statin for LDL = or >70 mg/dl on DC: Yes Anticoag for atrial fib/atrial flutter: Yes Antithrombotic for ischemic stroke: Yes Exam - Physical Exam Narrative exam: VITAL SIGNS: Reviewed. GENERAL: The patient appeared ill appearing, aphasic in no acute distress vital signs as documented. HEAD: No signs of head trauma. EYES: Pupils are equal. Extraocular motions intact. EARS: Hearing grossly intact. MOUTH: Oropharynx is normal. NECK: No adenopathy, no JVD. CHEST: Chest with clear breath sounds bilaterally. No wheezes, rales, or rhonchi. CARDIAC: Regularly irregular. S1 and S2, without murmurs, gallops, or rubs. VASCULAR: No Edema. Peripheral pulses normal and equal in all extremities. ABDOMEN: Soft, without detectable tenderness. No sign of distention. No rebound or guarding, and no masses palpated. Bowel Sounds normal. MUSCULOSKELETAL: Left hemiparesis NEUROLOGIC EXAM: Awake and alert us hemiparesis. Phasic PSYCHIATRIC: Mood normal. SKIN: No rash or lesions. - Constitutional Vitals: Temp Pulse Resp BP Pulse Ox 98.6 F 86 20 152/74 100 03/16/17 01:57 03/16/17 09:11 03/15/17 22:00 03/16/17 09:11 03/16/17 01:57 Plan Activity: advance as tolerated, fall precautions Additional Instructions: Daily INR CHECK INR RESUME WARFARIN ONCE LESS THAN 3 Follow up with: BALDOMERO IQBAL MD [Staff Physician] - 7 Days PRIMARY CARE, [Primary Care Provider] - 3-5 Days Forms: Warfarin Discharge Instruction
--- NOTE | 2017-03-16 17:48 | Progress Note ---
Assessment and Plan Assessment and plan: Patient is 61 yo man with a h/o htn, dlp, dm2, prior stroke with left hemiparesis and afib, noncompliant on coumadin who presented with being found on the floor overnight, no last known baseline. CT head reveals right subacute right temporal infarct. Now with expressive aphasia. DISCHARGE DIAGNOSIS -Acute embolic ischemic stroke, present on admission- Continue current treatment -Atrial fibrillation, chronic continue anticoagulation -Hypokalemia- Replace -Hypertension- stable -Left sided hemiparesis- pt/ot EVAL AND TREAT -Secondary coagulopathy due to Warfarin. Hold Coumadin Till INR therapeutic -Fall preacution -dvt/gi prophy -Await placement placement pending. [facility] waiting for family member to hand over disability check that comes today or tomorrow : History Interval history: Patient seen and examined. Follow up on cva and aphasia still present. no adverse event reported by nursing stafff. No cp, sob, n/v or severe headaches. Hospitalist Physical - Physical exam Narrative exam: VITAL SIGNS: Reviewed. GENERAL: The patient appeared ill appearing, aphasic in no acute distress vital signs as documented. HEAD: No signs of head trauma. EYES: Pupils are equal. Extraocular motions intact. EARS: Hearing grossly intact. MOUTH: Oropharynx is normal. NECK: No adenopathy, no JVD. CHEST: Chest with clear breath sounds bilaterally. No wheezes, rales, or rhonchi. CARDIAC: Regularly irregular. S1 and S2, without murmurs, gallops, or rubs. VASCULAR: No Edema. Peripheral pulses normal and equal in all extremities. ABDOMEN: Soft, without detectable tenderness. No sign of distention. No rebound or guarding, and no masses palpated. Bowel Sounds normal. MUSCULOSKELETAL: Left hemiparesis NEUROLOGIC EXAM: Awake and alert us hemiparesis. Phasic PSYCHIATRIC: Mood normal. SKIN: No rash or lesions. - Constitutional Vitals: Temp Pulse Resp BP Pulse Ox 98.0 F 53 L 14 110/67 99 03/16/17 17:39 03/16/17 17:39 03/16/17 17:39 03/16/17 17:39 03/16/17 17:39 General appearance: Present: no acute distress, well-nourished Results - Labs CBC & Chem 7: 03/13/17 05:06 03/03/17 00:45 Labs: Laboratory Last Values WBC 8.0 K/mm3 (4.5-11.0) 03/03/17 00:45 RBC 5.68 M/mm3 (3.65-5.03) H 03/03/17 00:45 Hgb 9.1 gm/dl (11.8-15.2) L 03/13/17 05:06 Hct 28.5 % (35.5-45.6) L 03/13/17 05:06 MCV 70 fl (84-94) L 03/03/17 00:45 MCH 22 pg (28-32) L 03/03/17 00:45 MCHC 31 % (32-34) L 03/03/17 00:45 RDW 17.3 % (13.2-15.2) H 03/03/17 00:45 Plt Count 266 K/mm3 (140-440) 03/13/17 05:06 Lymph % (Auto) 32.1 % (13.4-35.0) 03/03/17 00:45 Stone % (Auto) 9.5 % (0.0-7.3) H 03/03/17 00:45 Eos % (Auto) 2.4 % (0.0-4.3) 03/03/17 00:45 Baso % (Auto) 0.8 % (0.0-1.8) 03/03/17 00:45 Lymph # 2.6 K/mm3 (1.2-5.4) 03/03/17 00:45 Stone # 0.8 K/mm3 (0.0-0.8) 03/03/17 00:45 Eos # 0.2 K/mm3 (0.0-0.4) 03/03/17 00:45 Baso # 0.1 K/mm3 (0.0-0.1) 03/03/17 00:45 Seg Neutrophils % 55.2 % (40.0-70.0) 03/03/17 00:45 Seg Neutrophils # 4.4 K/mm3 (1.8-7.7) 03/03/17 00:45 PT 34.7 Sec. (12.2-14.9) H 03/16/17 05:46 INR 3.41 (0.87-1.13) H 03/16/17 05:46 APTT 25.2 Sec. (24.2-36.6) 03/05/17 10:12 Heparin Anti-Xa Level 0.10 U.I./ml (0.3-0.7) L 03/09/17 13:18 Sodium 133 mmol/L (137-145) L 03/03/17 00:45 Potassium 5.4 mmol/L (3.6-5.0) H 03/03/17 00:45 Chloride 92.5 mmol/L (98-107) L 03/03/17 00:45 Carbon Dioxide 24 mmol/L (22-30) 03/03/17 00:45 Anion Gap 22 mmol/L 03/03/17 00:45 BUN 21 mg/dL (9-20) H 03/03/17 00:45 Creatinine 1.1 mg/dL (0.8-1.5) 03/03/17 00:45 Estimated GFR > 60 ml/min 03/03/17 00:45 BUN/Creatinine Ratio 19.09 % 03/03/17 00:45 Glucose 103 mg/dL (75-100) H 03/03/17 00:45 POC Glucose 121 (70-105) H 03/16/17 16:24 Calcium 9.5 mg/dL (8.4-10.2) 03/03/17 00:45 Phosphorus 3.7 mg/dL (2.5-4.5) 03/03/17 00:45 Magnesium 1.9 mg/dL (1.7-2.3) 03/03/17 00:45 Total Bilirubin 0.3 mg/dL (0.1-1.2) 03/03/17 00:45 Direct Bilirubin < 0.2 mg/dL (0-0.2) 03/03/17 00:45 Indirect Bilirubin 0.1 mg/dL 03/03/17 00:45 AST 36 units/L (5-40) 03/03/17 00:45 ALT 17 units/L (7-56) 03/03/17 00:45 Alkaline Phosphatase 77 units/L (35-129) 03/03/17 00:45 Total Creatine Kinase 149 units/L (55-170) 03/03/17 00:45 Troponin T < 0.010 ng/mL (0.00-0.029) 03/03/17 00:45 Total Protein 8.4 g/dL (6.3-8.2) H 03/03/17 00:45 Albumin 3.9 g/dL (3.9-5) 03/03/17 00:45 Albumin/Globulin Ratio 0.9 % 03/03/17 00:45 Triglycerides 121 mg/dL (2-149) 03/04/17 06:51 Cholesterol 123 mg/dL (50-199) 03/04/17 06:51 LDL Cholesterol Direct 66 mg/dL (50-130) 03/04/17 06:51 HDL Cholesterol 33 mg/dL (40-59) L 03/04/17 06:51 Cholesterol/HDL Ratio 3.72 % 03/04/17 06:51 Urine Color Yellow (Yellow) 03/08/17 08:50 Urine Turbidity Clear (Clear) 03/08/17 08:50 Urine pH 6.0 (5.0-7.0) 03/08/17 08:50 Ur Specific [place] 1.011 (1.003-1.030) 03/08/17 08:50 Urine Protein 100 mg/dl mg/dL (Negative) 03/08/17 08:50 Urine Glucose (UA) Neg mg/dL (Negative) 03/08/17 08:50 Urine Ketones Neg mg/dL (Negative) 03/08/17 08:50 Urine Blood Mod (Negative) 03/08/17 08:50 Urine Nitrite Neg (Negative) 03/08/17 08:50 Urine Bilirubin Neg (Negative) 03/08/17 08:50 Urine Urobilinogen < 2.0 mg/dL (<2.0) 03/08/17 08:50 Ur Leukocyte Esterase Tr (Negative) 03/08/17 08:50 Urine WBC (Auto) 6.0 /HPF (0.0-6.0) 03/08/17 08:50 Urine RBC (Auto) 3.0 /HPF (0.0-6.0) 03/08/17 08:50 U Epithel Cells (Auto) < 1.0 /HPF (0-13.0) 03/08/17 08:50 Blood Type A POSITIVE 03/03/17 00:45 Antibody Screen Negative 03/03/17 00:45
[2017-03-16] MEDS: ZOCOR PO SCH (21:48)
[2017-03-17] MEDS: TYLENOL PO PRN (04:48)
[2017-03-17 06:21] LABS: INR 3.08 (0.87-1.13)
[2017-03-17] MEDS: NOVOLOG SUB-Q SCH ×2 (08:00→11:48)
[2017-03-17] MEDS: ASPIRIN PO SCH (12:34)
[2017-03-17] MEDS: NORVASC PO SCH (12:35)
[2017-03-17] MEDS: ZOLOFT PO SCH (12:35)
[2017-03-17] MEDS: COREG PO SCH (12:36)
[2017-03-17] MEDS: PROTONIX PO SCH (12:36)
[2017-03-17] MEDS: GLUCOPHAGE PO SCH (12:37)
[2017-03-17] MEDS: ZESTRIL PO SCH (12:37)
[2017-03-17] MEDS: CATAPRES PO SCH (12:37)
[2017-03-17] MEDS: HCTZ PO SCH (12:38)
[2017-03-17 13:13] VITALS: BP 129/77
== END 2017-03-17 13:34 | DRG 65 ==
LOC: ED 00:28 → 4A 03:00
PROVIDERS: ADMIT Internal Medicine; ATTEND Internal Medicine
DX: I63.511 Cerebral infarction due to unspecified occlusion or stenosis of right middle cerebral artery (principal); I69.354 Hemiplegia and hemiparesis following cerebral infarction affecting left non-dominant side; I42.0 Dilated cardiomyopathy; D68.8 Other specified coagulation defects; E78.5 Hyperlipidemia, unspecified; I16.1 Hypertensive emergency; I11.0 Hypertensive heart disease with heart failure; I50.9 Heart failure, unspecified; E87.6 Hypokalemia; E11.9 Type 2 diabetes mellitus without complications; I48.0 Paroxysmal atrial fibrillation; Z82.49 Family history of ischemic heart disease and other diseases of the circulatory system; Z79.82 Long term (current) use of aspirin; R13.10 Dysphagia, unspecified; Z91.19 Patient's noncompliance with other medical treatment and regimen
CPT/HCPCS: 36415; 70450; 70544; 70551; 71010; 74230; 80048; 80061; 80074; 81001; 82550; 82962; 83721; 83735; 84100; 84484; 85014; 85018; 85025; 85049; 85520; 85610; 85730; 86850; 86900; 86901; 87040; 90686; 90732; 93005; 93010; 93306; 93880; J1644; J1650; J1815; J1885